=== PATIENT | female | born 1990 | race Caucasian/White ===

== ENCOUNTER → 2019-04-04 | Outpatient (CLI) | payer BC, SELFPAY ==
[2019-04-04 09:37] VITALS: BMI 31.8
[2019-04-04 15:00] LABS: Chlamydia Trachomatis by PCR Negative (Negative); Neisserai gonorrhoeae by PCR Negative (Negative); Probe Check PASS; Sample Adequacy Control PASS; Specimen Processing Control PASS
== END | disposition home or self-care (01) ==
PROVIDERS: Referring Provider Nurse Practitioner Women's Health; Visit Provider Nurse Practitioner Women's Health
DX: O10.911 Unspecified pre-existing hypertension complicating pregnancy, first trimester (principal); Z3A.00 Weeks of gestation of pregnancy not specified
CPT/HCPCS: 87086; 87088; 87491; 87591

== ENCOUNTER → 2019-04-21 | Outpatient (CLI) | payer BC, SELFPAY ==
[2019-04-04 09:37] VITALS: BMI 31.8
[2019-04-21 13:34] LABS: Absolute Lymphocyte Count 1.99 X10^3/ul (0.83-4.51); Basophil# 0.01 X10^3/uL; Basophil% 0.1 % (0-1); Eosinophil# 0.03 X10^3/uL; Eosinophils% 0.4 % (0-5); Hematocrit 39.1 % (37-47); Hemoglobin 13.7 g/dl (12.0-15.0); Lymphocyte # 1.99 X10^3/ul (4.0); Lymphocyte % 23.5 % (19-41); Mean Corpuscular Hgb 28.8 pg (27.0-32.0); Mean Corpuscular Volume 82.3 fL (81-99); Mean Platelet Vol. 10.4 fl (6.2-12.0); Monocyte# 0.43 X10^3/uL; Monocyte% 5.1 % (0-10); Neutrophil # 5.98 X10^3/uL (2.7-7.7); Neutrophil % 70.7 % (47-70); Platelet Count 278 K/mm3 (150-450); RBC Distribution Width CV 13.1 % (11.6-14.6); RBC Distribution Width SD 39.6 fl (35.1-43.9); Red Blood Count 4.75 M/mm3 (4.2-5.4); White Blood Count 8.5 K/mm3 (4.4-11.0)
[2019-04-21 13:35] LABS: POSITIVE COUNT NO; POSITIVE DIFFERENTIAL NO; POSITIVE MORPHOLOGY NO
[2019-04-21 13:55] LABS: ALB/GLOB Ratio 0.8 RATIO (0.9-2.4); AST(SGOT) 12 U/L (15-37); Alanine Aminotransfer ALT/SGPT 18 U/L (13-56); Albumin, Serum 3.3 g/dL (3.2-5.0); Alkaline Phosphatase 81 U/L (45-117); Anion Gap 5 (5-15); BUN 6 mg/dL (7-18); Chloride 107 mmol/L (98-107); EST Glomerular Filtration Rate 129 mL/min (>60); Est Glom Filt Rate - Afr Amer 156 mL/min (>60); Globulin 3.9 g/dL (2.2-4.2); Glucose 104 mg/dL (74-106); Potassium 3.3 mmol/L (3.5-5.1); Protein, Total 7.2 g/dL (6.4-8.2); Sodium Level 135 mmol/L (136-145)
[2019-04-21 14:41] LABS: HIV - WCH Non-Reactive (Nonreactive); Rubella IgG 255.9 IU/mL
[2019-04-22 11:33] LABS: HEPATITIS B SURFACE AG Negative (Negative)
[2019-04-28 02:31] LABS: Rapid Plasmin Reagin (RPR) NONREACTIVE (NONREACTIVE)
== END | disposition home or self-care (01) ==
LOC: LAB 12:47
PROVIDERS: Nurse Practitioner Women's Health; Referring Provider Obstetrics & Gynecology; Visit Provider Obstetrics & Gynecology
DX: O16.1 Unspecified maternal hypertension, first trimester (principal); Z3A.00 Weeks of gestation of pregnancy not specified
CPT/HCPCS: 36415; 80053; 85025; 86592; 86703; 86762; 86850; 86900; 87340

== ENCOUNTER → 2019-05-04 | Outpatient (CLI) | payer BC, SELFPAY ==
[2019-05-04 15:05] VITALS: BMI 31.8
[2019-05-04 16:25] LABS: ALB/GLOB Ratio 0.8 RATIO (0.9-2.4); AST(SGOT) 11 U/L (15-37); Alanine Aminotransfer ALT/SGPT 18 U/L (13-56); Albumin, Serum 3.1 g/dL (3.2-5.0); Alkaline Phosphatase 77 U/L (45-117); Anion Gap 8 (5-15); BUN 8 mg/dL (7-18); BUN/Creat Ratio 13.2 RATIO (10-20); Calcium,Total 8.7 mg/dL (8.5-10.1); Chloride 105 mmol/L (98-107); Creatinine, Serum 0.61 mg/dL (0.55-1.02); EST Glomerular Filtration Rate 127 mL/min (>60); Est Glom Filt Rate - Afr Amer 153 mL/min (>60); Globulin 3.8 g/dL (2.2-4.2); Glucose 128 mg/dL (74-106); Potassium 3.3 mmol/L (3.5-5.1); Protein, Total 6.9 g/dL (6.4-8.2); Sodium Level 139 mmol/L (136-145)
== END | disposition home or self-care (01) ==
LOC: PAVLAB 15:11
PROVIDERS: Family Provider Nurse Practitioner Family; PCP Nurse Practitioner Family; Referring Provider Obstetrics & Gynecology; Visit Provider Obstetrics & Gynecology
DX: E87.6 Hypokalemia (principal)
CPT/HCPCS: 36415; 80053

== ENCOUNTER → 2019-06-07 | Outpatient (CLI) | payer BC, SELFPAY ==
[2019-05-16 08:28] VITALS: BMI 31.8
[2019-06-07 11:56] LABS: ALB/GLOB Ratio 0.8 RATIO (0.9-2.4); AST(SGOT) 14 U/L (15-37); Alanine Aminotransfer ALT/SGPT 19 U/L (13-56); Alkaline Phosphatase 79 U/L (45-117); Anion Gap 4 (5-15); BUN 7 mg/dL (7-18); Calcium,Total 8.6 mg/dL (8.5-10.1); Chloride 107 mmol/L (98-107); Creatinine, Serum 0.54 mg/dL (0.55-1.02); EST Glomerular Filtration Rate 145 mL/min (>60); Est Glom Filt Rate - Afr Amer 175 mL/min (>60); Globulin 3.7 g/dL (2.2-4.2); Glucose 98 mg/dL (74-106); Potassium 3.5 mmol/L (3.5-5.1); Protein, Total 6.7 g/dL (6.4-8.2); Sodium Level 138 mmol/L (136-145)
== END | disposition home or self-care (01) ==
LOC: PAVLAB 11:19
PROVIDERS: Nurse Practitioner Women's Health; Family Provider Nurse Practitioner Family; PCP Nurse Practitioner Family; Referring Provider Obstetrics & Gynecology; Visit Provider Obstetrics & Gynecology
DX: E87.6 Hypokalemia (principal); I10 Essential (primary) hypertension
CPT/HCPCS: 36415; 80053

== ENCOUNTER → 2019-08-01 | Outpatient (CLI) | payer BC, SELFPAY ==
[2019-08-01 12:04] VITALS: BMI 33.1
[2019-08-01 12:21] LABS: ROM Internal Control Test YES-OK TO RESULT pt. (Internal QC); Record Kit Lot#, ROM+ J8255
[2019-08-01 12:32] LABS: ROM Patient Test Negative (Negative)
== END | disposition home or self-care (01) ==
LOC: LABSPEC 12:09
PROVIDERS: Family Provider Nurse Practitioner Family; PCP Nurse Practitioner Family; Visit Provider Obstetrics & Gynecology
DX: Z34.90 Encounter for supervision of normal pregnancy, unspecified, unspecified trimester (principal)
CPT/HCPCS: 84112

== ENCOUNTER 2019-08-11 09:40 | Outpatient (CLI) | payer BC, SELFPAY ==
[2019-08-01 12:04] VITALS: BMI 33.1
[2019-08-11 10:18] VITALS: BMI 34.0
[2019-08-11 10:32] LABS: Mucous, Urine 0 SEEN /hpf (<or=2+); Red Blood Cells-Urine 0 SEEN /hpf (0-5)
[2019-08-11 10:46] LABS: Color, Urine Yellow (Yellow); Glucose, Dipstick 100 mg/dl (Normal); Ketone-Dipstick Negative (Negative); Leukocyte Esterase-Dipstick 500 /ul (Negative); Nitrite-Dipstick Negative (Negative); Occult Blood-Urine Negative /ul (Negative); Protein-Dipstick 15 mg/dl (Negative); Urine Bilirubin Dipstick Negative (Negative); Urine Clarity Sl. Cloudy (Clear); Urine Urobilinogen Normal (Normal)
[2019-08-11 10:56] LABS: Bacteria 1+ /hpf (None Seen); Squamous Epithelial Cells - UA 5-10 SEEN /hpf (5-10); White Blood Cells 25-50 SEEN /hpf (0-5)
[2019-08-11 10:57] LABS: ROM Internal Control Test YES-OK TO RESULT pt. (Internal QC); ROM Patient Test Negative (Negative); Record Kit Lot#, ROM+ J8255
--- NOTE | 2019-08-11 12:30 | OB.TRI.PN ---
Progress Notes Date of Service: 08/11/19 Progress Note: Patient presents for triage evaluation secondary to threatened labor co ctx 3/hr FHT:150 Moderate variability reactive no decelerations category I tracing [place]: 3/hr Contractions Assessment and plan: threatened labor Reactive NST, reassuring maternal and status patient discharged to home to follow-up as scheudled. See problem list details for additional plan information. Laboratory Studies: Laboratory Tests 08/11/19 08/11/19 Range/Units 10:25 10:25 Urine Color Yellow (Yellow) Urine Clarity Sl. Cloudy (Clear) Urine pH 7.0 (5.0 - 8.0) Ur Specific [place] 1.010 (1.002-1.030) Urine Protein 15 H (Negative) mg/dl Urine Glucose (UA) 100 H (Normal) mg/dl Urine Ketones Negative (Negative) mg/dl Urine Occult Blood Negative (Negative) /ul Urine Nitrite Negative (Negative) Urine Bilirubin Negative (Negative) mg/dL Urine Urobilinogen Normal (Normal) mg/dl Ur Leukocyte Esterase 500 H (Negative) /ul Urine RBC 0 SEEN (0-5) /hpf Urine WBC 25-50 SEEN (0-5) /hpf Ur Squamous Epith Cells 5-10 SEEN (5-10) /hpf Urine Bacteria 1+ (None Seen) /hpf Urine Mucus 0 SEEN (<or=2+) /hpf Vag Amniotic Fld Detect Negative (Negative) - Problem List (1) Threatened labor Status: Acute (2) Supervision of normal first Status: Acute Qualifiers: Comment: PRR G LAURA 11/09/2019 boy Patric Spouse:Velasquez, gender surprise Multi Select Codes - Urinary/Genital Urinary/Genital CPT Codes: 91001-79 non-stress test Interp
== END 2019-08-11 12:25 | disposition home or self-care (01) ==
LOC: WPOUT 09:45 → WP 09:46
PROVIDERS: Family Provider Nurse Practitioner Family; PCP Nurse Practitioner Family; Referring Provider Obstetrics & Gynecology; Visit Provider Obstetrics & Gynecology
DX: O60.00 Preterm labor without delivery, unspecified trimester (principal); Z3A.00 Weeks of gestation of pregnancy not specified
CPT/HCPCS: 59050; 81001; 84112; 99218; G0378

== ENCOUNTER → 2019-08-21 | Outpatient (CLI) | payer BC, SELFPAY ==
[2019-08-21 09:02] VITALS: BMI 34.0
[2019-08-21 10:03] LABS: Absolute Lymphocyte Count 1.73 X10^3/uL (0.83-4.51); Absolute Neutrophil Count 7.8 X10^3/uL (2.0-7.7); Basophil# 0.02 X10^3/uL; Basophil% 0.2 % (0-1); Eosinophil# 0.02 X10^3/uL; Eosinophils% 0.2 % (0-5); Hemoglobin 12.8 g/dL (12.0-15.0); Lymphocyte # 1.73 X10^3/ul (4.0); Mean Corp Hgb Conc 33.7 g/dL (32-36); Mean Corpuscular Hgb 29.3 pg (27.0-32.0); Monocyte# 0.53 X10^3/uL; Monocyte% 5.2 % (0-10); NRBC Flagged by Analyzer 0 % (0-5); Neutrophil # 7.78 X10^3/uL (2.7-7.7); Neutrophil % 76.3 % (47-70); Platelet Count 254 K/mm3 (150-450); RBC Distribution Width CV 13.6 % (11.6-14.6); Red Blood Count 4.37 M/mm3 (4.2-5.4); White Blood Count 10.2 K/mm3 (4.4-11.0)
== END | disposition home or self-care (01) ==
LOC: PAVLAB 09:30
PROVIDERS: Family Provider Nurse Practitioner Family; PCP Nurse Practitioner Family; Referring Provider Obstetrics & Gynecology; Visit Provider Obstetrics & Gynecology
DX: Z34.90 Encounter for supervision of normal pregnancy, unspecified, unspecified trimester (principal)
CPT/HCPCS: 36415; 85025

== ENCOUNTER → 2019-09-08 | Outpatient (CLI) | payer BC, SELFPAY ==
[2019-09-04 08:41] VITALS: BMI 34.0
--- NOTE | 2019-09-08 12:44 | US_ITS ---
STUDY: SECOND AND THIRD TRIMESTER OBSTETRICAL ULTRASOUND REASON FOR EXAM: Female, 28 years old evaluation of growth LMP: 02/02/2019 TECHNIQUE: Transabdominal TECHNICAL QUALITY: Adequate. PRIOR ULTRASOUND: None. FINDINGS: There is a single intrauterine fetus. The fetus is in a cephalic presentation. There is demonstrated cardiac activity with a heart rate of 129 bpm. There is a normal amniotic fluid volume. The largest amniotic fluid pocket measures 6.5 cm. The amniotic fluid index (DANNY) is 15.0 cm. The placenta is anterior and not low-lying There are Grade 0 placental changes. The cervix measures 4.3 in length. The bilateral adnexal regions are normal. BIOMETRY: BPD: 8.2 cm: 32 weeks, 5 days HC: 30.2 cm: 33 weeks, 3 days AC: 29.2 cm: 33 weeks, 1 days FL: 6.4 cm: 32 weeks, 6 days CI: 0.80 FL/BPD: 0.78 FL/HC: FL/AC: 0.22 HC/AC: 1.04 age by current US: 32 weeks, 5 days. LAURA by current US: 10/29/2019. Estimated weight: 2116 grams, +/- 303 grams, 90 %. Age by LMP: 31 weeks, 1 days. LAURA by LMP: 11/09/2019 IMPRESSION: A single live fetus in a cephalic presentation and longitudinal lie with composite measurements averaging out to be equivalent to 32 weeks 5 days +/- 5 days with an expected date of delivery of 10/29/2019. There is an estimated weight of 2116 g. This is in the 90th percentile. Electronically Signed: Anthony Max MD at 7:28 EST Tel , Service support , STUDY: SECOND AND THIRD TRIMESTER OBSTETRICAL ULTRASOUND REASON FOR EXAM: Female, 28 years old evaluation of growth LMP: 02/02/2019 TECHNIQUE: Transvaginal TECHNICAL QUALITY: Adequate. PRIOR ULTRASOUND: None. FINDINGS: There is a single intrauterine fetus. The fetus is in a cephalic presentation. There is demonstrated cardiac activity with a heart rate of 129 bpm. There is a normal amniotic fluid volume. The largest amniotic fluid pocket measures 6.5 cm. The amniotic fluid index (DANNY) is 15.0 cm. The placenta is anterior and not low-lying There are Grade 0 placental changes. The cervix measures 4.3 in length. The bilateral adnexal regions are normal. BIOMETRY: BPD: 8.2 cm: 32 weeks, 5 days HC: 30.2 cm: 33 weeks, 3 days AC: 29.2 cm: 33 weeks, 1 days FL: 6.4 cm: 32 weeks, 6 days CI: 0.80 FL/BPD: 0.78 FL/HC: FL/AC: 0.22 HC/AC: 1.04 age by current US: 32 weeks, 5 days. LAURA by current US: 10/29/2019. Estimated weight: 2116 grams, +/- 303 grams, 90 %. Age by LMP: 31 weeks, 1 days. LAURA by LMP: 11/09/2019 US/OB Limited With Biometrics
== END | disposition home or self-care (01) ==
PROVIDERS: Family Provider Nurse Practitioner Family; PCP Nurse Practitioner Family; Referring Provider Obstetrics & Gynecology; Visit Provider Obstetrics & Gynecology
DX: Z34.90 Encounter for supervision of normal pregnancy, unspecified, unspecified trimester (principal)
CPT/HCPCS: 76816; 76817

== ENCOUNTER 2019-09-24 06:15 | Outpatient (CLI) | payer BC, SELFPAY ==
[2019-09-18 08:40] VITALS: BMI 34.0
[2019-09-24 06:34] VITALS: BMI 34.4
[2019-09-24 07:43] LABS: Color, Urine Yellow (Yellow); Glucose, Dipstick Normal (Normal); Ketone-Dipstick Negative (Negative); Leukocyte Esterase-Dipstick 500 /ul (Negative); Nitrite-Dipstick Negative (Negative); Occult Blood-Urine 50 /ul (Negative); Protein-Dipstick Negative (Negative); Urine Bilirubin Dipstick Negative (Negative); Urine Clarity Sl. Cloudy (Clear); Urine Urobilinogen Normal (Normal)
[2019-09-24 07:50] LABS: Bacteria 1+ /hpf (None Seen); Mucous, Urine RARE /hpf (<or=2+); Red Blood Cells-Urine 0-5 SEEN /hpf (0-5); Squamous Epithelial Cells - UA 10-25 SEEN /hpf (5-10); White Blood Cells 5-10 SEEN /hpf (0-5)
[2019-09-24] MEDS: Nitrofurantoin Macrocrystals 100 MG Capsule PO (08:08)
--- NOTE | 2019-09-25 03:56 | OB.TRI.PN_ITS ---
Progress Notes Date of Service: 09/25/19 Progress Note: Patient presents for triage evaluation secondary to threatened labor FHT: 135 Moderate variability reactive no decelerations category I tracing [place]: Irregular contractions Assessment and plan: Threatened labor reactive NST, reassuring maternal and status patient discharged to home to follow-up as scheduled no significant cervical dilation ordered antibiotic for suspected UTI we will follow-up on culture. See problem list details for additional plan information. Laboratory Studies: Laboratory Tests 09/24/19 Range/Units 07:20 Urine Color Yellow (Yellow) Urine Clarity Sl. Cloudy (Clear) Urine pH 7.0 (5.0 - 8.0) Ur Specific [place] 1.010 (1.002-1.030) Urine Protein Negative (Negative) mg/dl Urine Glucose (UA) Normal (Normal) mg/dl Urine Ketones Negative (Negative) mg/dl Urine Occult Blood 50 H (Negative) /ul Urine Nitrite Negative (Negative) Urine Bilirubin Negative (Negative) mg/dL Urine Urobilinogen Normal (Normal) mg/dl Ur Leukocyte Esterase 500 H (Negative) /ul Urine RBC 0-5 SEEN (0-5) /hpf Urine WBC 5-10 SEEN (0-5) /hpf Ur Squamous Epith Cells 10-25 SEEN (5-10) /hpf Urine Bacteria 1+ (None Seen) /hpf Urine Mucus RARE (<or=2+) /hpf - Problem List (1) Threatened labor Status: Acute Comment: seen 09/24- no cervical dilation Multi Select Codes - Urinary/Genital Urinary/Genital CPT Codes: 50074-24 non-stress test Interp
== END 2019-09-24 08:15 | disposition home or self-care (01) ==
LOC: WPOUT 06:19 → OBT 06:21
PROVIDERS: Family Provider Nurse Practitioner Family; PCP Nurse Practitioner Family; Visit Provider Obstetrics & Gynecology
DX: O60.00 Preterm labor without delivery, unspecified trimester (principal); Z3A.00 Weeks of gestation of pregnancy not specified
CPT/HCPCS: 59025; 59050; 81001; 87086; 87088; 99218; G0378

== ENCOUNTER → 2019-10-06 08:37 | Outpatient (CLI) | payer BC, SELFPAY ==
[2019-09-04 08:41] VITALS: BMI 34.0
[2019-10-02 08:57] VITALS: BMI 34.4
--- NOTE | 2019-10-06 08:54 | US_ITS ---
STUDY: SECOND AND THIRD TRIMESTER OBSTETRICAL ULTRASOUND REASON FOR EXAM: Female, 28 years old LMP: 02/02 TECHNIQUE: TECHNICAL QUALITY: Adequate. PRIOR ULTRASOUND: 09/08/2019 FINDINGS: There is a single intrauterine fetus. The fetus is in a cephalic presentation. There is demonstrated cardiac activity with a heart rate of 135 bpm. There is a normal amniotic fluid volume. The largest amniotic fluid pocket measures 4.4 cm. The amniotic fluid index (DANNY) is 4.4 cm. The placenta is anterior There are Grade 0 placental changes. The cervix measures 3.3 in length. The bilateral adnexal regions are normal. BIOMETRY: BPD: 9.03 cm: 36 weeks, 3 days HC: 32.6 cm: 37 weeks, 0 days AC: 34.7 cm: 78 weeks, 4 days FL: 7.1 cm: 36 weeks, 5 days CI: 52% FL/BPD: 79% FL/HC: FL/AC: 21% HC/AC: 0.94 age by current US: 56 weeks, 5 days. LAURA by current US: 10/29/2019. Estimated weight: 3311 grams, +/- 490 grams, 97%. age by prior US: 36 weeks, 5 days. LAURA by prior US: 10/29/2019. Age by LMP: 35 weeks, 1 days. LAURA by LMP: 11/09/2019. ANATOMY: Gender: Cranium: Normal lateral ventricles. Normal choroid plexus. Normal cerebellum. Normal cisterna magna. Normal face, nose and lips. Chest: Normal 4-chamber heart. Abdomen/Pelvis: Normal diaphragm. Normal stomach. Normal abdominal wall. Normal cord insertion. Normal 3 vessel cord. Normal kidneys. Normal bladder. Spine: Normal cervical spine. Normal thoracic spine. Normal lumbar spine. Normal sacrum. Extremities: Normal bilateral upper extremities. Normal bilateral lower extremities. US/OB Limited With Biometrics IMPRESSION: Single intrauterine live fetus corresponds to about 56 weeks and 5 days Electronically Signed: Major Méndez, at 11:41 EST Tel , Service support ,
== END ==
PROVIDERS: Family Provider Nurse Practitioner Family; PCP Nurse Practitioner Family; Referring Provider Obstetrics & Gynecology; Visit Provider Obstetrics & Gynecology
DX: Z34.00 Encounter for supervision of normal first pregnancy, unspecified trimester (principal)
CPT/HCPCS: 76816; 76817

== ENCOUNTER 2019-10-07 19:35 | Outpatient (CLI) | payer BC, SELFPAY ==
[2019-10-02 08:57] VITALS: BMI 34.4
[2019-10-07 20:59] LABS: Hemoglobin 11.6 g/dL (12.0-15.0); Mean Corp Hgb Conc 34.1 g/dL (32-36); Mean Corpuscular Hgb 29.1 pg (27.0-32.0); Mean Corpuscular Volume 85.2 fL (81-99); Mean Platelet Vol. 11.4 fl (6.2-12.0); Platelet Count 235 K/mm3 (150-450); RBC Distribution Width CV 13.8 % (11.6-14.6); RBC Distribution Width SD 42.5 fl (35.1-43.9); Red Blood Count 3.99 M/mm3 (4.2-5.4); White Blood Count 11.1 K/mm3 (4.4-11.0)
[2019-10-07 21:13] LABS: AST(SGOT) 13 U/L (15-37); Alanine Aminotransfer ALT/SGPT 16 U/L (13-56); Creatinine, Serum 0.54 mg/dL (0.55-1.02); EST Glomerular Filtration Rate 145 mL/min (>60); Est Glom Filt Rate - Afr Amer 175 mL/min (>60); Estimated Creatinine Clearance 0.53 ml/min; Uric Acid 3.4 mg/dL (2.6-6.0)
[2019-10-07 21:29] LABS: Protein, Urine (Random) 12.7 mg/dL (<11.9); Protein:Creat Ratio 258 mg/g CRE (0-200)
[2019-10-07 22:11] LABS: International Normalized Ratio 0.9; Prothrombin Time (Protime)PT. 12.4 SECONDS (11.7-14.9)
[2019-10-07 22:12] LABS: Partial Thromboplast Time 27.8 Seconds (24.1-36.2)
--- NOTE | 2019-10-09 17:58 | OB.TRI.PN_ITS ---
Progress Notes Date of Service: 10/07/19 Progress Note: threatened ptl FHT: 130 Moderate variability reactive no decelerations category I tracing [place]: irregular Contractions threatened PTL dc home labor precautions Laboratory Studies: Laboratory Tests 10/09/19 10/07/19 10/07/19 Range/Units 03:15 21:19 20:50 WBC (4.4-11.0) K/mm3 RBC (4.2-5.4) M/mm3 Hgb (12.0-15.0) g/dL Hct (37-47) % MCV (81-99) fL MCH (27.0-32.0) pg MCHC (32-36) g/dL RDW Std Deviation (35.1-43.9) fl RDW Coeff of Maxim (11.6-14.6) % Plt Count (150-450) K/mm3 MPV (6.2-12.0) fl PT 12.4 INR 0.9 APTT 27.8 Sodium Cancelled Potassium Cancelled Chloride Cancelled Carbon Dioxide Cancelled Anion Gap Cancelled BUN Cancelled Creatinine Cancelled (0.55-1.02) mg/dL Estim Creat Clear Calc Cancelled ml/min Est GFR (MDRD) Af Amer Cancelled (>60) mL/min Est GFR (MDRD) Non-Af Cancelled (>60) mL/min BUN/Creatinine Ratio Cancelled Glucose Cancelled Uric Acid (2.6-6.0) mg/dL Calcium Cancelled Total Bilirubin Cancelled AST Cancelled (15-37) U/L ALT Cancelled (13-56) U/L Alkaline Phosphatase Cancelled Total Protein Cancelled Albumin Cancelled Globulin Cancelled Albumin/Globulin Ratio Cancelled U Random Total Protein 12.7 H (<11.9) mg/dL Urine Creatinine 49.30 (NO RANGE EST.) mg/dL Protein/Creatinin Ratio 258 H (0-200) mg/g CRE 10/07/19 10/07/19 10/07/19 Range/Units 20:50 20:50 20:50 WBC 11.1 H (4.4-11.0) K/mm3 RBC 3.99 L (4.2-5.4) M/mm3 Hgb 11.6 L (12.0-15.0) g/dL Hct 34.0 L (37-47) % MCV 85.2 (81-99) fL MCH 29.1 (27.0-32.0) pg MCHC 34.1 (32-36) g/dL RDW Std Deviation 42.5 (35.1-43.9) fl RDW Coeff of Maxim 13.8 (11.6-14.6) % Plt Count 235 (150-450) K/mm3 MPV 11.4 (6.2-12.0) fl PT Cancelled INR Cancelled APTT Cancelled Sodium Potassium Chloride Carbon Dioxide Anion Gap BUN Creatinine 0.54 L (0.55-1.02) mg/dL Estim Creat Clear Calc 0.53 ml/min Est GFR (MDRD) Af Amer 175 (>60) mL/min Est GFR (MDRD) Non-Af 145 (>60) mL/min BUN/Creatinine Ratio Glucose Uric Acid 3.4 (2.6-6.0) mg/dL Calcium Total Bilirubin AST 13 L (15-37) U/L ALT 16 (13-56) U/L Alkaline Phosphatase Total Protein Albumin Globulin Albumin/Globulin Ratio U Random Total Protein (<11.9) mg/dL Urine Creatinine (NO RANGE EST.) mg/dL Protein/Creatinin Ratio (0-200) mg/g CRE Multi Select Codes - Urinary/Genital Urinary/Genital CPT Codes: 20665-41 non-stress test Interp
== END 2019-10-07 22:30 | disposition home or self-care (01) ==
LOC: WPOUT 19:43 → WP 19:43
PROVIDERS: Family Provider Nurse Practitioner Family; PCP Nurse Practitioner Family; Referring Provider Obstetrics & Gynecology; Visit Provider Obstetrics & Gynecology
DX: O60.00 Preterm labor without delivery, unspecified trimester (principal); Z3A.00 Weeks of gestation of pregnancy not specified
CPT/HCPCS: 59050; 82565; 82570; 84156; 84450; 84460; 84550; 85027; 85610; 85730; 99218; G0378

== ENCOUNTER 2019-10-09 02:50 | Inpatient (IN) | payer BC, SELFPAY ==
[2019-10-09] VITALS (10 sets, daily range): BP systolic 103–147; BP diastolic 59–86; PULSE 89–121; RESP 18–20; TEMP 37.6–37.8; O2SAT 96–99; BMI 33.9
[2019-10-09] MEDS: Lactated Ringers 1,000 ML 50 ML IV (03:15)
[2019-10-09] MEDS: Betamethasone/Betamethasone 30 MG/5 ML Vial 12 MG IM (04:15)
[2019-10-09 04:24] LABS: Absolute Lymphocyte Count 3.17 X10^3/uL (0.83-4.51); Absolute Neutrophil Count 8.3 X10^3/uL (2.0-7.7); Basophil# 0.02 X10^3/uL; Basophil% 0.2 % (0-1); Eosinophil# 0.04 X10^3/uL; Eosinophils% 0.3 % (0-5); Hematocrit 35.1 % (37-47); Hemoglobin 12.1 g/dL (12.0-15.0); Lymphocyte # 3.17 X10^3/ul (4.0); Lymphocyte % 25.6 % (19-41); Mean Corp Hgb Conc 34.5 g/dL (32-36); Mean Corpuscular Hgb 29.2 pg (27.0-32.0); Mean Corpuscular Volume 84.6 fL (81-99); Mean Platelet Vol. 11.7 fl (6.2-12.0); Monocyte# 0.74 X10^3/uL; NRBC Flagged by Analyzer 0 % (0-5); Platelet Count 246 K/mm3 (150-450); RBC Distribution Width CV 13.7 % (11.6-14.6); RBC Distribution Width SD 42.1 fl (35.1-43.9); Red Blood Count 4.15 M/mm3 (4.2-5.4); White Blood Count 12.4 K/mm3 (4.4-11.0)
[2019-10-09] MEDS: Vancomycin IV 1,000 MG/200 ML BAG 200 MG IV ×2 (04:29→16:56)
[2019-10-09 04:30] LABS: ALB/GLOB Ratio 0.7 RATIO (0.9-2.4); AST(SGOT) 13 U/L (15-37); Alanine Aminotransfer ALT/SGPT 16 U/L (13-56); Albumin, Serum 2.7 g/dL (3.2-5.0); Alkaline Phosphatase 138 U/L (45-117); Anion Gap 9 (5-15); BUN 7 mg/dL (7-18); BUN/Creat Ratio 10.9 RATIO (10-20); Calcium,Total 8.5 mg/dL (8.5-10.1); Chloride 107 mmol/L (98-107); Creatinine, Serum 0.64 mg/dL (0.55-1.02); EST Glomerular Filtration Rate 118 mL/min (>60); Est Glom Filt Rate - Afr Amer 143 mL/min (>60); Globulin 3.8 g/dL (2.2-4.2); Glucose 91 mg/dL (74-106); Potassium 3.4 mmol/L (3.5-5.1); Protein, Total 6.5 g/dL (6.4-8.2); Sodium Level 136 mmol/L (136-145)
[2019-10-09 04:45] LABS: Protein, Urine (Random) 36.5 mg/dL (<11.9); Protein:Creat Ratio 283 mg/g CRE (0-200)
[2019-10-09 05:35] LABS: Group B Strep DNA By PCR Negative (Negative); Internal Control PASS; Probe Check PASS; Specimen Processing Control PASS
[2019-10-09] MEDS: Lactated Ringers 500 ML 999 ML IV ×2 (10:56→13:00)
[2019-10-09] MEDS: fentaNYL-bupivacaine (epidural) 100 ML BAG EPIDURAL ×2 (11:24→15:59)
[2019-10-09] MEDS: 0.9% Saline Lock 10 ML Syringe IV (12:42)
[2019-10-09] MEDS: Ondansetron 4 MG/2 ML Vial IV (12:42)
[2019-10-09] MEDS: Oxytocin 30 units/NS 500 ml 30 UNITS/500 ML IV.SOLN IV (14:28)
[2019-10-09] MEDS: Lactated Ringers 1,000 ML 200 ML IV (15:25)
--- NOTE | 2019-10-09 16:21 | HP.PCM_ITS ---
- Problem List (1) premature rupture of membranes (PPROM) with onset of labor after 24 hours of rupture in first trimester, antepartum Status: Acute (2) Diabetes mellitus screening declined by patient Status: Acute Comment: plan home BS checks x 1 week (3) Low serum potassium Status: Acute Comment: 06/07/19 (4) Anxiety Status: Acute Comment: zoloft 50 mg, encouraged counseling (5) Hypertension Status: Chronic Qualifiers: Comment: metoprolol, normal cmp, ekg, urine protein creatinine ratio. sees etienne green. plan growth us at 30 weeks and 34, plan weekly nsts after 32 and IOL by 38 (6) Status: Acute Qualifiers: Comment: Denies carrier. NIPT low risk. Anatomy US normal. (7) Supervision of normal first Status: Acute Qualifiers: Comment: PRR LAURA 11/09/2019 coby Spivey Spouse:Velasquez History Date of Admission: 10/09/19 Final LAURA: 11/09/19 Gestational age: 35 Weeks and 4 Days History of this : This is a 28 year-old, at 35 weeks gestational age presents with clear PPROM this morning. she is having regular ctx. denies any vb admits good fm. bps normal to mildly elevated.. Medical History: Medical History (Last Reviewed 09/25/19 @ 08:32 by Alicia Roa) Anxiety F41.9 Palpitations R00.2 white coat syndrome [place] teeth extracted K08.409 Allergies codeine Allergy (Mild, Verified 10/09/19 03:07) vomiting metronidazole [From Flagyl] Allergy (Mild, Verified 10/09/19 03:07) vomiting Penicillins Allergy (Mild, Verified 10/09/19 03:07) hives Home Medications: Home Medications metoprolol succinate ER 25 mg tablet,extended release 24 hr 12.5 mg PO DAILY 04/04/19 sertraline 50 mg tablet 50 mg PO DAILY 04/04/19 vitamin#30 30 mg iron-10 mg iron-folic acid 1 mg-omg3 capsule 1 cap PO DAILY cap 06/26/19 Smoking Status: Never smoker Alcohol: None Number of Fetus(es): 1 NST - FHR Rate Baby A Baseline: 140 Variability:: Moderate Accelerations:: 15 x 15 Decelerations:: None NST Reactive:: Yes FHR Category:: Category I Uterine Activity:: q 4-6 History Past Pregnancies: Past Pregnancies Delivery Date Name GA/ Weeks Outcome Route Wt Infant Sex Labor Length Anesthesia Delivery Location Provider FOB Labs: [facility] Microbiology 10/09/19 Unknown Genital vaginal Group B Streptococcus Culture - Pending [facility] Labs & Results 10/09/19 10/09/19 10/09/19 03:15 03:15 03:35 WBC 12.4 H RBC 4.15 L Hgb 12.1 Hct 35.1 L MCV 84.6 MCH 29.2 MCHC 34.5 RDW Std Deviation 42.1 RDW Coeff of Maxim 13.7 Plt Count 246 MPV 11.7 Immature Gran % (Auto) 0.900 Neut % (Auto) 67.0 Lymph % (Auto) 25.6 Bell % (Auto) 6.0 Eos % (Auto) 0.3 Baso % (Auto) 0.2 Absolute Neuts (auto) 8.3 H Absolute Lymphs (auto) 3.17 Nucleated RBC % 0 Sodium 136 Potassium 3.4 L Chloride 107 Carbon Dioxide 20.0 L Anion Gap 9 BUN 7 Creatinine 0.64 Estim Creat Clear Calc 124.70 Est GFR (MDRD) Af Amer 143 Est GFR (MDRD) Non-Af 118 BUN/Creatinine Ratio 10.9 Glucose 91 Calcium 8.5 Total Bilirubin 0.30 AST 13 L ALT 16 Alkaline Phosphatase 138 H Total Protein 6.5 Albumin 2.7 L Globulin 3.8 Albumin/Globulin Ratio 0.7 L U Random Total Protein Urine Creatinine Protein/Creatinin Ratio Group B Strep DNA Specimen Comment Blood Type AB POSITIVE Antibody Screen NEGATIVE 10/09/19 10/09/19 04:10 04:10 WBC RBC Hgb Hct MCV MCH MCHC RDW Std Deviation RDW Coeff of Maxim Plt Count MPV Immature Gran % (Auto) Neut % (Auto) Lymph % (Auto) Bell % (Auto) Eos % (Auto) Baso % (Auto) Absolute Neuts (auto) Absolute Lymphs (auto) Nucleated RBC % Sodium Potassium Chloride Carbon Dioxide Anion Gap BUN Creatinine Estim Creat Clear Calc Est GFR (MDRD) Af Amer Est GFR (MDRD) Non-Af BUN/Creatinine Ratio Glucose Calcium Total Bilirubin AST ALT Alkaline Phosphatase Total Protein Albumin Globulin Albumin/Globulin Ratio U Random Total Protein 36.5 H Urine Creatinine 129.00 Protein/Creatinin Ratio 283 H Group B Strep DNA Negative Specimen Comment Not Reportable Blood Type Antibody Screen Course Did the patient receive Yes care? Labs Blood Type: AB RH: POSITIVE RPR/VDRL/Syphilis Nonreactive Rubella status Immune HbSAg Negative Date Done: 04/21/19 HIV/AIDS Non-Reactive Current Obstetrical History Gestational Diabetes No Incompetent Cervix No Infertility No IUGR No Macrosomia No Hypertension/Pre-eclampsia Yes Placenta Previa/Abruption No PTL/PROM Yes Uterine anomaly No Oligohydramnios No Polyhydramnios No Multiple gestation No Past Medical History Asthma No Diabetes No Hypertension Yes Heart disease No Mitral valve prolapse No Neurologic/Seizure disorder/ No Migraines Kidney disease No Liver disease No Varicosities No Clotting disorders/Hx of DVT No Thyroid Dysfunction No Other medical diseases Yes: chronic white coat syndrome, chronic palpitations Psychiatric disorders Yes: anxiety/ depression Major trauma No Abnormal PAP smear No Sleep apnea No Mammogram in the last 2 years No Social History Marital Status: Alleged father Velasquez Cohen Hx Smoking No Smoking Status Never smoker Expected Infant Delivery Method: Spontaneous Vaginal Assessment/Plan All Active Problems (Last Reviewed 09/25/19 @ 08:32 by Alicia Roa) Threatened labor (Acute) premature rupture of membranes (PPROM) with onset of labor after 24 hours of rupture in first trimester, antepartum (Acute) Diabetes mellitus screening declined by patient (Acute) Low serum potassium (Acute) Anxiety (Acute) (Acute) Supervision of normal first (Acute) Tachycardia (Resolved) Threatened labor (Resolved) This is a 28 year-old, at 35 weeks gestational age presents PPROM. gbs unknown- Vancomycin pitocin PRN epidural PRN [place]
--- NOTE | 2019-10-09 17:17 | PCM.OPRPT ---
Problem List (1) premature rupture of membranes (PPROM) with onset of labor after 24 hours of rupture in first trimester, antepartum Status: Acute (2) Diabetes mellitus screening declined by patient Status: Acute Comment: plan home BS checks x 1 week (3) Low serum potassium Status: Acute Comment: 06/07/19 (4) Anxiety Status: Acute Comment: zoloft 50 mg, encouraged counseling (5) Hypertension Status: Chronic Qualifiers: Comment: metoprolol, normal cmp, ekg, urine protein creatinine ratio. sees etienne green. plan growth us at 30 weeks and 34, plan weekly nsts after 32 and IOL by 38 (6) Status: Acute Qualifiers: Comment: Denies carrier. NIPT low risk. Anatomy US normal. 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 Vacuum applied due to maternal exhaustion and variable decelerations. Pelvis assessed and initially felt to be adequate for 7 pound estimated weight infant. Vacuum applied in the +3 station and first was difficult to maintain suction as it was applied head was noted to be in the ROP presentation. 3 pop offs encountered and initially there was some minimal descent but then there was noted arrest of descent and therefore the procedure was aborted and it was discussed with the patient that the recommendation to proceed with primary is recommended. Suspected cephalopelvic disproportion. The patient was placed in the dorsal supine position with leftward tilt. Patient was prepped and draped in the normal sterile fashion. Pfannenstiel skin incision was made with the scalpel and carried through to the underlying layer of fascia with the scalpel. Fascia was nicked in the midline and the incision extended laterally. The peritoneum was entered digitally. The incision was stretched and a low transverse uterine incision was made with the scalpel. The infant's head was delivered after progressive flexion, with some difficulty due to maternal wretching and the tight angle of the pelvis, head impaction. however the head was finally delivered atraumatically followed by the anterior and posterior shoulders without complication the rest of the delivered. The cord was clamped and cut and the was handed off to awaiting nurse. The placenta was delivered spontaneously immediately following and was noted to be intact and have a three-vessel cord. The uterus was exteriorized cleared of all clots and debris, and the incision was closed in a double layer closure using #1 Monocryl. The ovaries and fallopian tubes were noted to be within normal limits. The uterus was returned to the maternal abdomen and gutters were cleared of all clots and debris. The peritoneum was closed with 3-0 Monocryl in a running fashion. Gloves were changed prior to fascial closure. Fascia was closed with 0 PDS in a running fashion. Subcutaneous tissue was copiously irrigated and the skin was closed with 3-0 Monocryl in a subcuticular fashion. Mepilex dressing was applied without complication. Patient was taken to recovery in stable condition. It was discussed with the patient that based on the clinical information obtained during this encounter, combined with her history, at this time I would recommend repeat cesareans for future deliveries if further pregnancies are desired. Amniotic Membrane Rupture Type: Spontaneous Amniotic Fluid Description: Clear Placenta Disposition: [facility] Cord Entanglement: None Esitmated Blood Loss (ml): 600 Gender: Male Antibiotic Given: Clindamycin 600mg IV x1 and Gentamicin 1.5mg/kg IV x1, Zithromax 500 mg/5 mL X1 Complications: None - Admit VTE Documentation VTE Present on Admission: No Vaginal Delivery Maternal Presentation: Active Labor, Spontaneous Rupture of Membranes 35 weeks IAL PPROM Method of Induction: Pitocin Amniotic Membrane Rupture Type: Spontaneous at home Amniotic Fluid Description: Clear Final LAURA: 11/09/19 Gestational age: 35 Weeks and 4 Days Type of Anesthesia: Epidural Placental Delivery Description: Spontaneous Placenta Disposition: [facility] Cord Vessel Description: 3 Vessels A gender: Male Medications given after delivery: IV Pitocin Complications: None Multi Select Codes - Urinary/Genital Urinary/Genital CPT Codes: 44165 Delivery [facility]
[2019-10-09] MEDS: Sodium Citrate/Citric Acid 30 ML UDC PO (19:32)
[2019-10-09] MEDS: Oxytocin 30 units/NS 500 ml 30 UNITS/500 ML IV.SOLN 167 UNITS IV (20:50)
[2019-10-09] MEDS: Lactated Ringers 1,000 ML 100 ML IV (23:52)
[2019-10-10] VITALS (15 sets, daily range): BP systolic 99–128; BP diastolic 46–70; PULSE 75–108; RESP 16–20; TEMP 36.3–37; O2SAT 96–99
--- NOTE | 2019-10-10 00:11 | NURSING ---
2330-epidural dosed w duramorph
--- NOTE | 2019-10-10 01:00 | NURSING ---
0055-spoke w dr story regarding pt feeling the pusling off and on to her abd, bleeding slightly extending to abd dressing, applied abd binder and still noted extending again, therefore going to place sand bag and reassess in an hour.vag bleeding/bp/hr all stable. ok with plan of care.
[2019-10-10] MEDS: Ketorolac 30 MG/ML Syringe IV ×4 (02:04→20:17)
[2019-10-10 05:49] LABS: Hemoglobin 9.3 g/dL (12.0-15.0); Mean Corp Hgb Conc 33.2 g/dL (32-36); Mean Corpuscular Hgb 28.6 pg (27.0-32.0); Mean Corpuscular Volume 86.2 fL (81-99); Mean Platelet Vol. 11.9 fl (6.2-12.0); Platelet Count 226 K/mm3 (150-450); RBC Distribution Width CV 14.1 % (11.6-14.6); RBC Distribution Width SD 43.8 fl (35.1-43.9); Red Blood Count 3.25 M/mm3 (4.2-5.4); White Blood Count 15.7 K/mm3 (4.4-11.0)
--- NOTE | 2019-10-10 08:05 | PN.OBGYN_ITS ---
Patient Problems: Active and Suspected Problems (Last Reviewed 09/25/19 @ 08:32 by Alicia Roa) premature rupture of membranes (PPROM) with onset of labor after 24 hours of rupture in first trimester, antepartum (Acute) Subjective: doing well no complaints pain controlled no CP SOB N V up to bedside and went in wheelchair to [facility](infant boy with low blood sugar/stable) tolerating po lochia moderate, going well - Physical Exam Vitals/I&O's: Vital Signs Temp Pulse Resp BP Pulse Ox 98.6 F 80 18 112/70 97 10/10/19 05:00 10/10/19 06:00 10/10/19 07:00 10/10/19 05:00 10/10/19 07:00 Oxygen Delivery Method Room Air Weight: 210 lb 5.136 oz Body Mass Index (BMI) 33.9 Intake and Output for Last 24 Hours 10/08/19 10/09/19 10/10/19 23:59 23:59 23:59 Intake Total 5469.73 / 5469.73 1605.33 / 1605.33 Output Total 975 / 975 650 / 650 Balance 4494.73 / 4494.73 955.33 / 955.33 General: Alert, Oriented x3 Abdomen: Non-Distended, - - FF below U. Dressing dry and intact with old d rainage only Laboratory Results 10/10/19 05:10: WBC 15.7 H, RBC 3.25 L, Hgb 9.3 L, Hct 28.0 L, MCV 86.2, MCH 28.6, MCHC 33.2, RDW Std Deviation 43.8, RDW Coeff of Maxim 14.1, Plt Count 226, MPV 11.9 Current Medications Acetaminophen (Tylenol) 1,000 mg PO Q8H PRN PRN PRN Reason: Pain Score 1-3/10 Bisacodyl (Dulcolax) 10 mg RECTAL UD PRN PRN Reason: If no BM Enoxaparin Sodium (Lovenox) 40 mg SC DAILY [facility] Hydrocortisone (Hytone) 1 applic TOPICAL TID PRN PRN; Protocol PRN Reason: Discomfort Lactated Ringer's () 1,000 mls @ 100 mls/hr IV .Q10H [facility] Last Infusion: 10/10/19 07:00 Dose: 100 mls/hr Documented by: Naloxone HCl 4 mg/ Dextrose 504 mls @ 0 mls/hr IV .Q0M PRN; Protocol PRN Reason: Respiratory depression Ketorolac Tromethamine (Toradol) 30 mg IV Q6H [facility] Stop: 10/11/19 20:01 Last Admin: 10/10/19 02:04 Dose: 30 mg Documented by: Metoprolol Succinate (Toprol Xl (Beta Minesh)) 12.5 mg PO DAILY [facility] Nalbuphine HCl (Nubain) 5 mg IV Q3H PRN PRN PRN Reason: ITCHING Stop: 10/11/19 02:53 Naloxone HCl (Narcan) 0.02 mg IV Q1M PRN PRN Reason: RR <10 and pt unresponsive Naproxen (Naprosyn) 250 - 500 mg PO Q8H PRN PRN PRN Reason: Pain Score 1-3/10 Ondansetron HCl (Zofran) 4 mg IV Q4H PRN PRN PRN Reason: Nausea Oxycodone HCl (Oxyir) 5 - 10 mg PO Q4H PRN PRN PRN Reason: Pain Score 4-10/10 Multivit/Folic Acid/Iron (Prenatabs Fa) 1 tablet PO DAILY [facility] Prochlorperazine Edisylate (Compazine Iv) 10 mg IV Q6H PRN PRN PRN Reason: NAUSEA Senna/Docusate Sodium (Senokot-S, Tita-Colace) 1 - 2 tablet PO DAILY PRN PRN Reason: Constipation Sertraline HCl (Zoloft) 50 mg PO DAILY [facility] Simethicone (Mylicon) 80 mg PO PCHS PRN PRN Reason: Indigestion/stomach pain Sodium Chloride () 5 - 15 ml IV UD PRN PRN Reason: SALINE FLUSH Medical Necessity - Tobacco Use Smoking Status: Never smoker Assessment/Plan All Active Problems (Last Reviewed 09/25/19 @ 08:32 by Alicia Roa) Threatened labor (Acute) premature rupture of membranes (PPROM) with onset of labor after 24 hours of rupture in first trimester, antepartum (Acute) Diabetes mellitus screening declined by patient (Acute) Low serum potassium (Acute) Anxiety (Acute) (Acute) Supervision of normal first (Acute) Tachycardia (Resolved) Threatened labor (Resolved) s/p PLTCS PPD # 1(CPD) 1. routine post care 2. breast feeding- support given 3. rh positive 4. rubella immune
[2019-10-10] MEDS: Lactated Ringers 1,000 ML 100 ML IV (09:53)
[2019-10-10] MEDS: Enoxaparin 40 MG/0.4 ML Syringe SC (10:45)
[2019-10-10] MEDS: Prenatal Vits Tablet 1 TABLET PO (10:45)
--- NOTE | 2019-10-10 11:29 | NURSING ---
Visit with mother in SCN, attempted to nurse baby during visit and was happy with how baby did. Reports that nurses got her pumping shortly after delivery and also pumped and hand expressed during the night. She was able to collect swabs, Reviewed pumping techniques and timing with mother and also encouraged hand expression with pumping, advised mother to call IBCLC for assistance with hand expression if desires. Mother indicates understanding
[2019-10-10] MEDS: Senna/Docusate Sodium 1 Tablet PO (14:14)
--- NOTE | 2019-10-10 14:56 | CASEMGMT ---
Social Work Labor and Delivery Consult received for maternal history of anxiety and resources. Chart has been reviewed. Noted baby, born at 35 weeks, has been transferred and admitted into the [facility]. This insurance underwriter sales is also the assigned high school social studies teacher for the SCN unit. Checked with SCN staff and mother of baby (MOB) has been into the SCN today, working on feeding the baby. Plan: See MOB today or tomorrow as time allows. -JOAO Hayes, GENERAL INTERNIST
[2019-10-10] MEDS: Acetaminophen 500 MG Tablet 1000 MG PO (18:24)
[2019-10-10] MEDS: 0.9% Saline Lock 10 ML Syringe IV (20:17)
[2019-10-10] MEDS: Sertraline 50 MG Tablet PO (21:45)
[2019-10-11] MEDS: Ketorolac 30 MG/ML Syringe IV ×3 (02:58→13:30)
[2019-10-11 03:05] VITALS: BP 113/73; PULSE 72; RESP 18; TEMP 36.6; O2SAT 98
[2019-10-11] MEDS: 0.9% Saline Lock 10 ML Syringe IV (08:16)
[2019-10-11 08:34] VITALS: BP 116/63; PULSE 81; RESP 18; TEMP 36.9; O2SAT 97
[2019-10-11] MEDS: Senna/Docusate Sodium 1 Tablet PO (10:28)
[2019-10-11] MEDS: Prenatal Vits Tablet 1 TABLET PO (10:28)
--- NOTE | 2019-10-11 10:48 | PCM.PN.OB ---
Patient Problems: Active and Suspected Problems (Last Reviewed 09/25/19 @ 08:32 by Alicia Roa) premature rupture of membranes (PPROM) with onset of labor after 24 hours of rupture in first trimester, antepartum (Acute) Subjective: doing well no complaints pain controlled no CP SOB N V ambulating well tolerating po lochia moderate, going well - Physical Exam Vitals/I&O's: Vital Signs Temp Pulse Resp BP Pulse Ox 98.5 F 81 18 116/63 97 10/11/19 08:34 10/11/19 08:34 10/11/19 08:34 10/11/19 08:34 10/11/19 08:34 Oxygen Delivery Method Room Air Weight: 210 lb 5.136 oz Body Mass Index (BMI) 33.9 Intake and Output for Last 24 Hours 10/09/19 10/10/19 10/11/19 23:59 23:59 23:59 Intake Total 5469.73 / 5469.73 2001. / 2001. Output Total 975 / 975 1800 / 1800 Balance 4494.73 / 4494.73 202.00 / 202.00 General: Alert, Oriented x3 Abdomen: Soft, Non-Distended, - - Dressing dry and intact. FF below U Current Medications Acetaminophen (Tylenol) 1,000 mg PO Q8H PRN PRN PRN Reason: Pain Score 1-3/10 Last Admin: 10/10/19 18:24 Dose: 1,000 mg Documented by: Bisacodyl (Dulcolax) 10 mg RECTAL UD PRN PRN Reason: If no BM Enoxaparin Sodium (Lovenox) 40 mg SC DAILY [facility] Last Admin: 10/10/19 10:45 Dose: 40 mg Documented by: Hydrocortisone (Hytone) 1 applic TOPICAL TID PRN PRN; Protocol PRN Reason: Discomfort Naloxone HCl 4 mg/ Dextrose 504 mls @ 0 mls/hr IV .Q0M PRN; Protocol PRN Reason: Respiratory depression Ketorolac Tromethamine (Toradol) 30 mg IV Q6H [facility] Stop: 10/11/19 20:01 Last Admin: 10/11/19 08:15 Dose: 30 mg Documented by: Metoprolol Succinate (Toprol Xl (Beta Minesh)) 12.5 mg PO DAILY@2100 [facility] Last Admin: 10/10/19 21:55 Dose: Not Given Documented by: Naloxone HCl (Narcan) 0.02 mg IV Q1M PRN PRN Reason: RR <10 and pt unresponsive Naproxen (Naprosyn) 250 - 500 mg PO Q8H PRN PRN PRN Reason: Pain Score 1-3/10 Ondansetron HCl (Zofran) 4 mg IV Q4H PRN PRN PRN Reason: Nausea Oxycodone HCl (Oxyir) 5 - 10 mg PO Q4H PRN PRN PRN Reason: Pain Score 4-10/10 Multivit/Folic Acid/Iron (Prenatabs Fa) 1 tablet PO DAILY [facility] Last Admin: 10/11/19 10:28 Dose: 1 tablet Documented by: Prochlorperazine Edisylate (Compazine Iv) 10 mg IV Q6H PRN PRN PRN Reason: NAUSEA Senna/Docusate Sodium (Senokot-S, Tita-Colace) 1 - 2 tablet PO DAILY PRN PRN Reason: Constipation Last Admin: 10/11/19 10:28 Dose: 2 tablet Documented by: Sertraline HCl (Zoloft) 50 mg PO DAILY@2100 [facility] Last Admin: 10/10/19 21:45 Dose: 50 mg Documented by: Simethicone (Mylicon) 80 mg PO PCHS PRN PRN Reason: Indigestion/stomach pain Sodium Chloride () 5 - 15 ml IV UD PRN PRN Reason: SALINE FLUSH Last Admin: 10/11/19 08:16 Dose: 5 ml Documented by: Medical Necessity - Tobacco Use Smoking Status: Never smoker Assessment/Plan All Active Problems (Last Reviewed 09/25/19 @ 08:32 by Alicia Roa) Threatened labor (Acute) premature rupture of membranes (PPROM) with onset of labor after 24 hours of rupture in first trimester, antepartum (Acute) Diabetes mellitus screening declined by patient (Acute) Low serum potassium (Acute) Anxiety (Acute) (Acute) Supervision of normal first (Acute) Tachycardia (Resolved) Threatened labor (Resolved) s/p LTCS PPD # 2 1. routine post care 2. breast feeding- support given 3. rh positive 4. rubella immune 5. Baby stable in [facility]. Plan home tomorrow
[2019-10-11] MEDS: Enoxaparin 40 MG/0.4 ML Syringe SC (11:36)
--- NOTE | 2019-10-11 13:15 | NURSING ---
Reviewed student nurse charting and it is complete.
[2019-10-11 13:39] VITALS: BP 113/53; PULSE 78; RESP 16; TEMP 36.6
--- NOTE | 2019-10-11 13:40 | CASEMGMT ---
Social Work Assessment Labor and Delivery Unit Date of Referral: 10.10.2019 Time of Referral: 728 Referred By: Dr. Chavez Date of Intervention: 10.11.2019 Time of Intervention: 113 Reason for Referral: Maternal anxiety and resources History obtained from: medical records and mother of baby (MOB) Sandra Cohen Household composition: MOB and father of baby (FOB). Home situation is reported to be safe and adequate. Home just purchased at the beginning of . Patient's parent/guardian status: TRUDY, age 28, is to JOVANY Cohen for the last 3 years (together for 7 years). MOB denies any form of abuse in relationship with JOVANY. baby is the first for both parents. [place] to be named Patric Cohen, born on 10.09.2017. Medical History: TRUDY is G1, P0 to 1 after delivering of infant at 35 weeks gestation. Delivery via unscheduled after failed vacuum assisted delivery. care was good and started in the first trimester. Patric?s birthweight was 6 pounds 4 ounces. Apgars 7 and 9 at 1 and 5 minutes of life. Baby transferred into the [facility] shortly after due to hypoglycemia issues and prematurity. Educational Status: MOB graduated high school, denies any issues with reading, writing, or learning comprehension. 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 Supplies: MOB reports to have needed supplies to get started including a bassinet, pack-n-play, breast pump, clothing, diapers, wipes, and car seat. Childcare/Caregiver(s): MOB and then FOB. Transportation: No issues. Programs/Agencies Involved: No agency involvement such as WIC as MOB believes to be over the income guidelines. MOB does agree to a Help Me Grow referral. Children Services/Legal Issues: None. Behavioral Health Issues: Mental Health History: MOB reports history of anxiety and depression, more prominently identifies with anxiety. MOB reports currently takes Zoloft and plans to stay on this in the period. MOB reports history of counseling with Chen Messer about 5 years ago and found this intervention helpful at the time. No reports SI or HI. 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 Substance Use History: MOB denies any substance use or abuse issues including alcohol, tobacco, or illicit substances. Family History: Not discussed Drug Screens: none noted in the chart. Family/Social Stressors: Premature delivery of baby, with unplanned . Baby now in the [facility]. MOB reports had previously been in conversation with OBGYN about establishing with a counselor during the , just to have the support in place once the baby was born. MOB not able to do this due to early delivery. Thought a positive change, MOB and FOB did purchase a home when MOB found out she was . Support Systems: MOB reports FOB is ?my best friend? and the person that MOB can most talk to about emotions. MOB reports great practical support from FOB?s mother who is an OB nurse and who MOB reports is an all around nice person. MOB reports to have good support from her family and some friends too. Depression/Shaken Baby/Safe Sleeping: MOB educated on safe sleeping, shaken baby prevention, and mood and anxiety disorders. ASSESSMENT: Met with MOB in room, introduced to self and role. MOB with good eye contact, appropriate affect, smiled at appropriate times, and mood congruent to affect. MOB admits there was stress during the delivery and with baby going to the SCN, but that MOB is trying to keep a positive perspective in that the staff was caring and compassionate with MOB, as well as that MOB and baby are alive and healthy right now. MOB reports baby is progressing well in the SCN and this is also helping MOB. MOB reports to feel she manages her anxiety well these days, but would not be opposed to restarting counseling should symptoms of mood and anxiety issues surface in the period. MOB engaged in conversation about mood and anxiety issues, asking questions and giving feedback. MOB accepting of all resources offered and also accepted a Help Me Grow referral, which will be done closer to the time baby is discharged from the SCN. 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 MOB reports to have adequate support from family and reports breast feeding is going well so far. PLAN: MOB will discharged when medically ready. No other services requested from [facility] standpoint. Social work will continue to follow this family from the [facility], where this insurance underwriter is also the assigned social and political studies professor ,and to which MOB was educated to. MOB has been given mood and anxiety disorders packet that includes local, online, reading, and crisis resources. [facility]G referral will be made when baby is discharged from the [facility]. No other services requested or indicated. -FARRAH Hayes, DIGITAL COMMUNITY MANAGER
[2019-10-11 20:58] VITALS: BP 109/73; PULSE 86; RESP 18; TEMP 37.3; O2SAT 97
[2019-10-11 21:05] VITALS: BP 109/73; PULSE 86
[2019-10-11] MEDS: Sertraline 50 MG Tablet PO (21:10)
[2019-10-12] MEDS: Naproxen 250 MG Tablet PO ×3 (00:03→17:18)
[2019-10-12 03:44] VITALS: BP 117/79; PULSE 74; RESP 18; TEMP 36.8; O2SAT 97
--- NOTE | 2019-10-12 08:10 | PCM.PN.OB ---
Patient Problems: Active and Suspected Problems (Last Reviewed 09/25/19 @ 08:32 by Alicia Roa) premature rupture of membranes (PPROM) with onset of labor after 24 hours of rupture in first trimester, antepartum (Acute) Subjective: doing well no complaints pain controlled no CP SOB N V ambulating well tolerating po lochia moderate, going well - Physical Exam Vitals/I&O's: Vital Signs Temp Pulse Resp BP Pulse Ox 98.2 F 74 18 117/79 97 10/12/19 03:44 10/12/19 03:44 10/12/19 03:44 10/12/19 03:44 10/12/19 03:44 Oxygen Delivery Method Room Air Weight: 210 lb 5.136 oz Body Mass Index (BMI) 33.9 Intake and Output for Last 24 Hours 10/10/19 10/11/19 10/12/19 23:59 23:59 23:59 Intake Total 2001. / 2001. Output Total 1800 / 1800 Balance .00 / .00 General: Alert, Oriented x3 Abdomen: Soft, Non-Distended, - - Dressing dry and intact except old drainage. FF below U Current Medications Acetaminophen (Tylenol) 1,000 mg PO Q8H PRN PRN PRN Reason: Pain Score 1-3/10 Last Admin: 10/10/19 18:24 Dose: 1,000 mg Documented by: Bisacodyl (Dulcolax) 10 mg RECTAL UD PRN PRN Reason: If no BM Enoxaparin Sodium (Lovenox) 40 mg SC DAILY [facility] Last Admin: 10/11/19 11:36 Dose: 40 mg Documented by: Hydrocortisone (Hytone) 1 applic TOPICAL TID PRN PRN; Protocol PRN Reason: Discomfort Naloxone HCl 4 mg/ Dextrose 504 mls @ 0 mls/hr IV .Q0M PRN; Protocol PRN Reason: Respiratory depression Metoprolol Succinate (Toprol Xl (Beta Minesh)) 12.5 mg PO DAILY@2100 [facility] Last Admin: 10/11/19 21:05 Dose: Not Given Documented by: Naloxone HCl (Narcan) 0.02 mg IV Q1M PRN PRN Reason: RR <10 and pt unresponsive Naproxen (Naprosyn) 250 - 500 mg PO Q8H PRN PRN PRN Reason: Pain Score 1-3/10 Last Admin: 10/12/19 00:03 Dose: 500 mg Documented by: Ondansetron HCl (Zofran) 4 mg IV Q4H PRN PRN PRN Reason: Nausea Oxycodone HCl (Oxyir) 5 - 10 mg PO Q4H PRN PRN PRN Reason: Pain Score 4-10/10 Multivit/Folic Acid/Iron (Prenatabs Fa) 1 tablet PO DAILY [facility] Last Admin: 10/11/19 10:28 Dose: 1 tablet Documented by: Prochlorperazine Edisylate (Compazine Iv) 10 mg IV Q6H PRN PRN PRN Reason: NAUSEA Senna/Docusate Sodium (Senokot-S, Tita-Colace) 1 - 2 tablet PO DAILY PRN PRN Reason: Constipation Last Admin: 10/11/19 10:28 Dose: 2 tablet Documented by: Sertraline HCl (Zoloft) 50 mg PO DAILY@2100 [facility] Last Admin: 10/11/19 21:10 Dose: 50 mg Documented by: Simethicone (Mylicon) 80 mg PO HS PRN PRN Reason: Indigestion/stomach pain Sodium Chloride () 5 - 15 ml IV UD PRN PRN Reason: SALINE FLUSH Last Admin: 10/11/19 08:16 Dose: 5 ml Documented by: Medical Necessity - Tobacco Use Smoking Status: Never smoker Assessment/Plan All Active Problems (Last Reviewed 09/25/19 @ 08:32 by Alicia Roa) Threatened labor (Acute) premature rupture of membranes (PPROM) with onset of labor after 24 hours of rupture in first trimester, antepartum (Acute) Diabetes mellitus screening declined by patient (Acute) Low serum potassium (Acute) Anxiety (Acute) (Acute) Supervision of normal first (Acute) Tachycardia (Resolved) Threatened labor (Resolved) s/p LTCS PPD # 3 1. routine post care 2. breast feeding- support given 3. rh positive 4. rubella immune 4. Hotel status today as baby still in SCN
--- NOTE | 2019-10-12 08:11 | DCINST_ITS ---
Additional Instructions: If you experience any of the following, contact your healthcare provider. * Bleeding that soaks a pad every hour for 2 hours * Fever 100.4 or higher * Unrelieved incision or abdominal pain * Swelling, redness, discharge or bleeding from your incision or episiotomy site * Your incision begins to separate * Problems urinating (including inability to urinate or burning while urinating). * Visual changes * Severe headache * Flu-like symptoms * Pain or redness in one of both of your breasts * Pain, warmth, tenderness or swelling in your legs, especially the calf area * Frequent nausea and vomiting * Symptoms of depression or anxiety If you experience any of the following, call 911 or go to the nearest Emergency Room. * Chest pain * Problems breathing * Seizure activity * Partial or complete paralysis of a body part, slurred speech, weakness or drooping of the face, or a sudden inability to walk or hold your balance Allergies/Adverse Reactions: Allergies codeine Allergy (Mild, Verified 10/09/19 03:07) vomiting metronidazole [From Flagyl] Allergy (Mild, Verified 10/09/19 03:07) vomiting Penicillins Allergy (Mild, Verified 10/09/19 03:07) hives Medications to take at Discharge metoprolol succinate ER 25 mg tablet,extended release 24 hr 12.5 mg PO DAILY 04/04/19 sertraline 50 mg tablet 50 mg PO DAILY 04/04/19 vitamin#30 30 mg iron-10 mg iron-folic acid 1 mg-omg3 capsule 1 cap PO DAILY cap 06/26/19 Naproxen [Naprosyn] 500 mg PO BID PRN PRN #60 tab 10/12/19 The following prescriptions were given: Naproxen [Naprosyn] 500 mg PO BID PRN PRN #60 tab PRN Reason: Pain Transmission Status: Received by [facility] Follow-Up: Call to make an appointment with your doctor for an incision check in 1-2 weeks. You will also need a 6 week post- follow up appointment. Test results from this visit will be discussed in further detail at your follow- up appointment, if applicable. Primary Care Physician: Tammi Landers, CINTIA-C [Primary Care Provider] -
--- NOTE | 2019-10-12 08:11 | PCM.DCCSEC ---
Additional Instructions: If you experience any of the following, contact your healthcare provider. Bleeding that soaks a pad every hour for 2 hours Fever 100.4 or higher Unrelieved incision or abdominal pain Swelling, redness, discharge or bleeding from your incision or episiotomy site Your incision begins to separate Problems urinating (including inability to urinate or burning while urinating). Visual changes Severe headache Flu-like symptoms Pain or redness in one of both of your breasts Pain, warmth, tenderness or swelling in your legs, especially the calf area Frequent nausea and vomiting Symptoms of depression or anxiety If you experience any of the following, call 911 or go to the nearest Emergency Room. Chest pain Problems breathing Seizure activity Partial or complete paralysis of a body part, slurred speech, weakness or drooping of the face, or a sudden inability to walk or hold your balance Allergies/Adverse Reactions: Allergies codeine Allergy (Mild, Verified 10/09/19 03:07) vomiting metronidazole [From Flagyl] Allergy (Mild, Verified 10/09/19 03:07) vomiting Penicillins Allergy (Mild, Verified 10/09/19 03:07) hives Medications to take at Discharge metoprolol succinate ER 25 mg tablet,extended release 24 hr 12.5 mg PO DAILY 04/04/19 sertraline 50 mg tablet 50 mg PO DAILY 04/04/19 vitamin#30 30 mg iron-10 mg iron-folic acid 1 mg-omg3 capsule 1 cap PO DAILY cap 06/26/19 Naproxen [Naprosyn] 500 mg PO BID PRN PRN #60 tab 10/12/19 The following prescriptions were given: Naproxen [Naprosyn] 500 mg PO BID PRN PRN #60 tab PRN Reason: Pain Transmission Status: Received by [facility] Follow-Up: Call to make an appointment with your doctor for an incision check in 1-2 weeks. You will also need a 6 week post- follow up appointment. Test results from this visit will be discussed in further detail at your follow-up appointment, if applicable. Primary Care Physician: Tammi Landers NP-C [Primary Care Provider] -
--- NOTE | 2019-10-12 08:13 | PCM.DC.SUM ---
Discharge Date and Diagnosis - Problem List Patient Problems: Active and Suspected Problems (Last Reviewed 09/25/19 @ 08:32 by Alicia Roa) premature rupture of membranes (PPROM) with onset of labor after 24 hours of rupture in first trimester, antepartum (Acute) Date of Admission: 10/09/19 - Primary Discharge Diagnosis Active and Suspected Problems (Last Reviewed 09/25/19 @ 08:32 by Alicia Roa) premature rupture of membranes (PPROM) with onset of labor after 24 hours of rupture in first trimester, antepartum (Acute) - Secondary Discharge Diagnosis Chronic Problems (Last Reviewed 09/25/19 @ 08:32 by Alicia Roa) Hypertension (Chronic) metoprolol, normal cmp, ekg, urine protein creatinine ratio. sees etienne green. plan growth us at 30 weeks and 34, plan weekly nsts after 32 and IOL by 38 Hospital Course and Treatment Consultations 10/09/19 04:16 Consult: Anesthesia Routine Comment: Reason For Exam: Labor Operations: - - primary LTCS Summary of Care Provided: The patient is a 28 year old F primary low transverse c section for CPD. Routine postop care. No restrictions, regular diet. Patient Problems: Active and Suspected Problems (Last Reviewed 09/25/19 @ 08:32 by Alicia Roa) premature rupture of membranes (PPROM) with onset of labor after 24 hours of rupture in first trimester, antepartum (Acute) - Physical Exam Vitals/I&O's: Vital Signs Temp Pulse Resp BP Pulse Ox 98.2 F 74 18 117/79 97 10/12/19 03:44 10/12/19 03:44 10/12/19 03:44 10/12/19 03:44 10/12/19 03:44 Oxygen Delivery Method Room Air Weight: 210 lb 5.136 oz Body Mass Index (BMI) 33.9 Intake and Output for Last 24 Hours 10/10/19 10/11/19 10/12/19 23:59 23:59 23:59 Intake Total Output Total 1800 / 1800 Balance Current Medications Acetaminophen (Tylenol) 1,000 mg PO Q8H PRN PRN PRN Reason: Pain Score 1-3/10 Last Admin: 10/10/19 18:24 Dose: 1,000 mg Documented by: Bisacodyl (Dulcolax) 10 mg RECTAL UD PRN PRN Reason: If no BM Enoxaparin Sodium (Lovenox) 40 mg SC DAILY [facility] Last Admin: 10/11/19 11:36 Dose: 40 mg Documented by: Hydrocortisone (Hytone) 1 applic TOPICAL TID PRN PRN; Protocol PRN Reason: Discomfort Naloxone HCl 4 mg/ Dextrose 504 mls @ 0 mls/hr IV .Q0M PRN; Protocol PRN Reason: Respiratory depression Metoprolol Succinate (Toprol Xl (Beta Minesh)) 12.5 mg PO DAILY@2100 [facility] Last Admin: 10/11/19 21:05 Dose: Not Given Documented by: Naloxone HCl (Narcan) 0.02 mg IV Q1M PRN PRN Reason: RR <10 and pt unresponsive Naproxen (Naprosyn) 250 - 500 mg PO Q8H PRN PRN PRN Reason: Pain Score 1-3/10 Last Admin: 10/12/19 00:03 Dose: 500 mg Documented by: Ondansetron HCl (Zofran) 4 mg IV Q4H PRN PRN PRN Reason: Nausea Oxycodone HCl (Oxyir) 5 - 10 mg PO Q4H PRN PRN PRN Reason: Pain Score 4-10/10 Multivit/Folic Acid/Iron (Prenatabs Fa) 1 tablet PO DAILY [facility] Last Admin: 10/11/19 10:28 Dose: 1 tablet Documented by: Prochlorperazine Edisylate (Compazine Iv) 10 mg IV Q6H PRN PRN PRN Reason: NAUSEA Senna/Docusate Sodium (Senokot-S, Tita-Colace) 1 - 2 tablet PO DAILY PRN PRN Reason: Constipation Last Admin: 10/11/19 10:28 Dose: 2 tablet Documented by: Sertraline HCl (Zoloft) 50 mg PO DAILY@2100 [facility] Last Admin: 10/11/19 21:10 Dose: 50 mg Documented by: Simethicone (Mylicon) 80 mg PO PCHS PRN PRN Reason: Indigestion/stomach pain Sodium Chloride () 5 - 15 ml IV UD PRN PRN Reason: SALINE FLUSH Last Admin: 10/11/19 08:16 Dose: 5 ml Documented by: Home Medications: Medications to take at Discharge metoprolol succinate ER 25 mg tablet,extended release 24 hr 12.5 mg PO DAILY 04/04/19 sertraline 50 mg tablet 50 mg PO DAILY 04/04/19 vitamin#30 30 mg iron-10 mg iron-folic acid 1 mg-omg3 capsule 1 cap PO DAILY cap 06/26/19 Naproxen [Naprosyn] 500 mg PO BID PRN PRN #60 tab 10/12/19 Following Prescrptions Were Given to Patient: Naproxen [Naprosyn] 500 mg PO BID PRN PRN #60 tab PRN Reason: Pain Transmission Status: Received by [facility] Primary Care Physician: Tammi Landers NP-C [Primary Care Provider] - Medical Necessity - Tobacco Use Smoking Status: Never smoker Meaningful Use Info Meaningful Use Diagnoses (Choose all that apply): None applicable
[2019-10-12 08:55] VITALS: BP 119/81; PULSE 75; RESP 16; TEMP 36.6; O2SAT 100
[2019-10-12] MEDS: Prenatal Vits Tablet 1 TABLET PO (10:11)
[2019-10-12] MEDS: Enoxaparin 40 MG/0.4 ML Syringe SC (10:11)
[2019-10-12] MEDS: Acetaminophen 500 MG Tablet 1000 MG PO (11:28)
[2019-10-12 13:24] VITALS: BP 122/56; PULSE 81; RESP 16; TEMP 36.6; O2SAT 97
--- NOTE | 2019-10-12 18:07 | NURSING ---
pt. to sushila at 1720, reviewed information sheet and potential for pt.'s room to be needed
== END 2019-10-12 15:20 | disposition home or self-care (01) | DRG 787 ==
PROVIDERS: Admitting Provider Obstetrics & Gynecology; Family Provider Nurse Practitioner Family; PCP Nurse Practitioner Family; Visit Provider Obstetrics & Gynecology
DX: O42.113 Preterm premature rupture of membranes, onset of labor more than 24 hours following rupture, third trimester (principal); O10.92 Unspecified pre-existing hypertension complicating childbirth; O76 Abnormality in fetal heart rate and rhythm complicating labor and delivery; O62.1 Secondary uterine inertia; Z3A.35 35 weeks gestation of pregnancy; Z37.0 Single live birth
CPT/HCPCS: 59025; 59050; 80053; 82570; 84156; 85025; 85027; 86850; 86900; 86901; 87081; 87653; 99218; 99251; J7120; A4216; G0378; G0463; J2405

== ENCOUNTER → 2019-11-17 13:03 | Outpatient (CLI) | payer BC, SELFPAY ==
[2019-11-17 09:18] VITALS: BMI 33.9
[2019-11-21 18:44] LABS: HPV Reflexed? NOT INDICATED
== END ==
PROVIDERS: Family Provider Nurse Practitioner Family; PCP Nurse Practitioner Family; Visit Provider Obstetrics & Gynecology
DX: Z12.4 Encounter for screening for malignant neoplasm of cervix (principal)
CPT/HCPCS: 88175; G0145

== ENCOUNTER → 2021-05-22 | Outpatient (CLI) | payer BC, SELFPAY ==
[2021-05-22 09:13] VITALS: BMI 33.7
[2021-05-22 12:49] LABS: Amphetamine Urine VISTA NEGATIVE (<1000 ng/mL); Barbiturate Urine VISTA NEGATIVE (< 200 ng/mL); Benzodiazepine Urine VISTA NEGATIVE (< 200 ng/mL); Cocaine Urine VISTA NEGATIVE (< 300 ng/mL); Ecstacy Urine VISTA NEGATIVE (< 500 ng/mL); Methadone Urine VISTA NEGATIVE (< 300 ng/mL); PCP Urine VISTA NEGATIVE (< 25 ng/mL); THC Urine VISTA NEGATIVE (< 50 ng/mL); Vista UDS pH Range 5
[2021-05-24 03:07] LABS: Chlamydia By Nucleic Acid AMP Negative (Negative)
[2021-05-24 11:40] LABS: Gonococcus By Nucleic Acid AMP Negative (Negative)
== END | disposition home or self-care (01) ==
LOC: LABSPEC 11:49
PROVIDERS: Referring Provider Obstetrics & Gynecology; Visit Provider Obstetrics & Gynecology
DX: Z34.90 Encounter for supervision of normal pregnancy, unspecified, unspecified trimester (principal)
CPT/HCPCS: 80307; 87086; 87088; 87491; 87591

== ENCOUNTER → 2021-06-05 09:53 | Outpatient (CLI) | payer BC, SELFPAY ==
[2021-05-22 09:13] VITALS: BMI 33.7
[2021-06-05 10:20] LABS: Absolute Lymphocyte Count 1.78 X10^3/uL (0.83-4.51); Absolute Neutrophil Count 6.4 X10^3/uL (2.0-7.7); Basophil# 0.02 X10^3/uL; Basophil% 0.2 % (0-1); Eosinophil# 0.03 X10^3/uL; Eosinophils% 0.3 % (0-5); Hematocrit 38.4 % (37-47); Hemoglobin 13.1 g/dL (12.0-15.0); Lymphocyte # 1.78 X10^3/ul (0.83-4.51); Lymphocyte % 20.5 % (19-41); Mean Corp Hgb Conc 34.1 g/dL (32-36); Mean Corpuscular Hgb 28.5 pg (27.0-32.0); Mean Corpuscular Volume 83.5 fL (81-99); Mean Platelet Vol. 10.8 fl (6.2-12.0); Monocyte% 4.6 % (0-10); NRBC Flagged by Analyzer 0 % (0-5); Neutrophil # 6.42 X10^3/uL (2.7-7.7); Neutrophil % 74.1 % (47-70); Platelet Count 281 K/mm3 (150-450); RBC Distribution Width SD 39.4 fl (35.1-43.9); White Blood Count 8.7 K/mm3 (4.4-11.0)
[2021-06-05 11:15] LABS: NATERA MAILED SPECIMEN
[2021-06-05 11:23] LABS: HIV - WCH Non-Reactive (Nonreactive); Hepatitis B Surface Antigen Non-Reactive (Nonreactive); Hepatitis C Antibody Non-Reactive (Nonreactive); Rubella IgG Reactive (Nonreactive); Syphilis Antibodies Non-reactive
== END ==
PROVIDERS: Referring Provider Obstetrics & Gynecology; Visit Provider Obstetrics & Gynecology
DX: Z34.81 Encounter for supervision of other normal pregnancy, first trimester (principal)
CPT/HCPCS: 36415; 85025; 86703; 86762; 86780; 86803; 86850; 86900; 86901; 87340

== ENCOUNTER → 2021-06-25 14:02 | Outpatient (CLI) | payer BC, SELFPAY ==
[2021-06-25] MEDS: Dextrose 5%-Lactated Ringers 1,000 ML 999 ML IV (14:14)
[2021-06-25] MEDS: Ondansetron 4 MG/2 ML Vial IV (14:14)
[2021-06-25 14:20] VITALS: BP 138/67; PULSE 88; RESP 16; TEMP 36.3; O2SAT 100; BMI 34.0
[2021-06-25 15:24] VITALS: BP 120/57; PULSE 81; RESP 16; TEMP 36.2; O2SAT 100
== END ==
LOC: ONC 14:02 → MEDOUTP 14:39
PROVIDERS: Referring Provider Obstetrics & Gynecology; Visit Provider Obstetrics & Gynecology
DX: E86.0 Dehydration (principal)
CPT/HCPCS: 96361 ×2; 96374; J2405

== ENCOUNTER → 2021-08-11 08:19 | Outpatient (CLI) | payer BC, SELFPAY ==
[2021-06-20 11:53] VITALS: BMI 33.7
--- NOTE | 2021-08-11 08:22 | US_ITS ---
INDICATION: anatomy EXAMINATION: Ultrasound US OB Greater Than 14 Weeks TECHNIQUE: Transabdominal pelvic ultrasound was performed. COMPARISON: None. LMP: Unknown. Beta-hCG: Unknown. Provided EGA: None. FINDINGS: INTRAUTERINE GESTATION(s): Single. ESTIMATED GESTATIONAL AGE: 20 weeks 5 days ESTIMATED DUE DATE (LAURA): 12/24/2021 HEART MOTION is 157 bpm. AMNIOTIC FLUID INDEX (DANNY): Within normal limits ESTIMATED WEIGHT: Percentile %. BIOPHYSICAL PROFILE (BPP): Not assessed. PRESENTATION: Cephalic PLACENTA: Anterior. There is no placenta previa or abruption. CERVIX: The cervix is closed. The cervix measures 3.9 cm in length. Sonographic evaluation of anatomy demonstrates unremarkable cranium with the lateral ventricles measuring 0.65 cm, cerebellum measuring 2.10 cm cisterna magna measuring 0.44 cm, unremarkable face/nose and lips, choroid plexus is visualized and is unremarkable. Unremarkable evaluation of the chest, abdomen, pelvis, spine and extremities. Male gender. US/OB Anatomy Scan IMPRESSION: Single live intrauterine of 20 weeks 5 days gestation. No structural abnormality. Electronically Signed: Lyle Joe MD at 14:48 EDT Tel , Service support ,
== END ==
PROVIDERS: Referring Provider Obstetrics & Gynecology; Visit Provider Obstetrics & Gynecology
DX: O09.90 Supervision of high risk pregnancy, unspecified, unspecified trimester (principal); Z3A.20 20 weeks gestation of pregnancy
CPT/HCPCS: 76805; 76817

== ENCOUNTER → 2021-10-15 11:40 | Outpatient (CLI) | payer BC, SELFPAY ==
[2021-10-15 12:41] LABS: Absolute Lymphocyte Count 1.97 X10^3/uL (0.83-4.51); Absolute Neutrophil Count 6.9 X10^3/uL (2.0-7.7); Basophil# 0.02 X10^3/uL; Basophil% 0.2 % (0-1); Eosinophil# 0.03 X10^3/uL; Eosinophils% 0.3 % (0-5); Hemoglobin 11.4 g/dL (12.0-15.0); Lymphocyte # 1.97 X10^3/ul (0.83-4.51); Lymphocyte % 20.5 % (19-41); Mean Corp Hgb Conc 33.5 g/dL (32-36); Mean Corpuscular Hgb 28.1 pg (27.0-32.0); Mean Corpuscular Volume 83.7 fL (81-99); Mean Platelet Vol. 10.7 fl (6.2-12.0); Monocyte# 0.58 X10^3/uL; NRBC Flagged by Analyzer 0 % (0-5); Neutrophil # 6.94 X10^3/uL (2.7-7.7); Neutrophil % 72.4 % (47-70); Platelet Count 268 K/mm3 (150-450); RBC Distribution Width CV 13.3 % (11.6-14.6); RBC Distribution Width SD 40.8 fl (35.1-43.9); Red Blood Count 4.06 M/mm3 (4.2-5.4); White Blood Count 9.6 K/mm3 (4.4-11.0)
[2021-10-15 12:52] LABS: Glucose Challenge Gest 1H 50g 170 mg/dL (70-140)
== END ==
PROVIDERS: Referring Provider Nurse Practitioner Women's Health; Visit Provider Nurse Practitioner Women's Health
DX: Z34.92 Encounter for supervision of normal pregnancy, unspecified, second trimester (principal); Z3A.17 17 weeks gestation of pregnancy
CPT/HCPCS: 36415; 82950; 85025

== ENCOUNTER → 2021-10-22 08:45 | Outpatient (CLI) | payer BC, SELFPAY ==
[2021-10-22 09:33] LABS: Glucose Challenge Gest 1H 50g 141 mg/dL (70-140)
== END ==
PROVIDERS: Referring Provider Obstetrics & Gynecology; Visit Provider Obstetrics & Gynecology
DX: O09.90 Supervision of high risk pregnancy, unspecified, unspecified trimester (principal); Z3A.00 Weeks of gestation of pregnancy not specified
CPT/HCPCS: 36415; 82950

== ENCOUNTER 2021-10-28 00:17 | Outpatient (CLI) | payer BC, SELFPAY ==
[2021-10-28 00:40] VITALS: PULSE 90; O2SAT 99
[2021-10-28 00:43] VITALS: BP 124/71; PULSE 90; TEMP 36.7; O2SAT 98
[2021-10-28 00:46] VITALS: BMI 32.8
--- NOTE | 2021-10-28 09:51 | OB.TRI.PN_ITS ---
Progress Notes Date of Service: 10/27/21 Progress Note: Patient presents for triage evaluation secondary to abdominal pain and ctx FHT: 140 Moderate variability reactive no decelerations category I tracing [place]: no regular Contractions Assessment and plan: abdominal pain around umbilicus where small hernia is pr sent- passing gas, no N/V, stable Reactive NST, reassuring maternal and status patient discharged to home to follow-up as scheduled. See problem list details for additional plan information. Charges/Coding Procedures Urinary/Genital [id number]: [id number] non-stress test Interp
== END 2021-10-28 01:40 | disposition home or self-care (01) ==
LOC: WPOUT 00:26 → WP 00:26
PROVIDERS: Visit Provider Obstetrics & Gynecology
DX: O26.899 Other specified pregnancy related conditions, unspecified trimester (principal); R10.9 Unspecified abdominal pain; K46.9 Unspecified abdominal hernia without obstruction or gangrene
CPT/HCPCS: 59025; 59050; 99218; G0378

== ENCOUNTER → 2021-11-04 08:14 | Outpatient (CLI) | payer BC, SELFPAY ==
--- NOTE | 2021-11-04 08:16 | US_ITS ---
STUDY: SECOND AND THIRD TRIMESTER OBSTETRICAL ULTRASOUND REASON FOR EXAM: Female, 30 years old growth LMP: 03/23/2021 TECHNIQUE: Transabdominal TECHNICAL QUALITY: Adequate. PRIOR ULTRASOUND: 08/11/2021 FINDINGS: There is a single intrauterine fetus. The fetus is in a cephalic presentation. There is demonstrated cardiac activity with a heart rate of 160 bpm. There is a normal amniotic fluid volume. The largest amniotic fluid pocket measures 7.5 cm. The amniotic fluid index (DANNY) is 18.7 cm. The placenta is anterior in location and is not low lying. There are Grade 1 placental changes. The cervix measures 3.3 cm in length. The adnexal regions are not visualized. BIOMETRY: BPD: 8.5 cm: 34 weeks, 0 days HC: 32.2 cm: 36 weeks, 2 days AC: 30.8 cm: 34 weeks, 5 days FL: 6.7 cm: 34 weeks, 2 days CI: 74.72% FL/BPD: 79.16% FL/HC: 20.78% FL/AC: 21.69% HC/AC: 1.04 age by current US: 35 weeks, 3 days. LAURA by current US: 12/06/2021. Estimated weight: 2484 grams, +/- 373 grams, 96 %. Age by LMP: 32 weeks, 2 days. LAURA by LMP: 12/28/2021. US/OB Limited With Biometrics IMPRESSION: Living intrauterine of 35 weeks 3 days as described above. age is discordant by age by LMP of 32 weeks 2 days suggestive of macrosomia or incorrect dates. Electronically Signed: Camilo Giraldo MD at 9:20 EST Tel , Service support ,
== END ==
PROVIDERS: Referring Provider Obstetrics & Gynecology; Visit Provider Obstetrics & Gynecology
DX: I10 Essential (primary) hypertension (principal)
CPT/HCPCS: 76816

== ENCOUNTER 2021-11-11 08:49 | Outpatient (CLI) | payer BC, SELFPAY ==
--- NOTE | 2021-11-11 08:52 | US_ITS ---
STUDY: SECOND AND THIRD TRIMESTER OBSTETRICAL ULTRASOUND - LIMITED REASON FOR EXAM: Female, 31 years old danny LMP: 03/23/2021 PRIOR ULTRASOUND: 11/04/2021 TECHNIQUE: Transabdominal TECHNICAL QUALITY: Adequate. FINDINGS: There is a single intrauterine fetus. The fetus is in a cephalic presentation. There is demonstrated cardiac activity with a heart rate of 164 bpm. There is increased amniotic fluid volume consistent with polyhydramnios. The largest amniotic fluid pocket measures 7.6 cm. The amniotic fluid index (DANNY) is 21.7 cm. The placenta is anterior in location and is not low lying. There are Grade 1 placental changes. The cervix measures 3.4 cm in length. Age by LMP: 33 weeks, 2 days. LAURA by LMP: 12/28/2021. US/OB Limited (No Biometrics) IMPRESSION: Living intrauterine of 33 weeks 2 days as described above. Polyhydramnios with an amniotic fluid index of 21.7 cm. Electronically Signed: Camilo Giraldo MD at 12:39 EST Tel , Service support ,
== END 2021-11-11 23:59 | disposition short-term general hospital (02) ==
LOC: OPUS 08:50
PROVIDERS: Referring Provider Obstetrics & Gynecology; Visit Provider Obstetrics & Gynecology
DX: O36.60X0 Maternal care for excessive fetal growth, unspecified trimester, not applicable or unspecified (principal); Z3A.33 33 weeks gestation of pregnancy
CPT/HCPCS: 76815

== ENCOUNTER 2021-11-17 16:19 | Outpatient (CLI) | payer BC, SELFPAY ==
[2021-11-17 16:46] LABS: ROM Internal Control Test YES-OK TO RESULT pt. (Internal QC); ROM Patient Test Negative (Negative)
== END 2021-11-17 23:59 | disposition short-term general hospital (02) ==
PROVIDERS: Referring Provider Obstetrics & Gynecology; Visit Provider Obstetrics & Gynecology
DX: O26.899 Other specified pregnancy related conditions, unspecified trimester (principal); N89.8 Other specified noninflammatory disorders of vagina; Z3A.00 Weeks of gestation of pregnancy not specified
CPT/HCPCS: 84112

== ENCOUNTER 2021-11-21 08:51 | Outpatient (CLI) | payer BC, SELFPAY ==
--- NOTE | 2021-11-21 08:53 | US_ITS ---
STUDY: SECOND AND THIRD TRIMESTER OBSTETRICAL ULTRASOUND - LIMITED REASON FOR EXAM: Female, 31 years old chronic HTN -- WEEKLY DANNY STANDING ORDER LMP: 03/23/2021. PRIOR ULTRASOUND: Comparison is made with prior study dated 11/11/2021. TECHNIQUE: Transabdominal TECHNICAL QUALITY: Adequate. FINDINGS: There is a single intrauterine fetus. The fetus is in a cephalic presentation. There is demonstrated cardiac activity with a heart rate of 145 bpm. There is a normal amniotic fluid volume. The largest amniotic fluid pocket measures 9.8 cm. The amniotic fluid index (DANNY) is 20.02 cm. The placenta is anterior in location and is not low lying. There are Grade 1 placental changes. The cervix measures 3.4 cm in length. BIOMETRY: Age by LMP: 34 weeks, 5 days. LAURA by LMP: 12/28/2021. age by prior US: 37 weeks, 6 days. LAURA by prior US: 12/06/2021. US/OB Limited (No Biometrics) IMPRESSION: Normal amniotic fluid. Electronically Signed: Papo Antonio MD at 10:33 EST , Service support ,
== END 2021-11-21 23:59 | disposition short-term general hospital (02) ==
PROVIDERS: Referring Provider Obstetrics & Gynecology; Visit Provider Obstetrics & Gynecology
DX: I10 Essential (primary) hypertension (principal)
CPT/HCPCS: 76815

== ENCOUNTER 2021-11-26 12:09 | Outpatient (CLI) | payer BC, SELFPAY ==
--- NOTE | 2021-11-26 12:16 | US_ITS ---
STUDY: SECOND AND THIRD TRIMESTER OBSTETRICAL ULTRASOUND - LIMITED REASON FOR EXAM: Female, 31 years old HTN amniotic fluid index. LMP: 03/23/2021. PRIOR ULTRASOUND: Comparison is made with prior examination dated 11/21/2021. TECHNIQUE: Transabdominal TECHNICAL QUALITY: Adequate. FINDINGS: There is a single intrauterine fetus. The fetus is in a cephalic presentation. There is demonstrated cardiac activity with a heart rate of 148 bpm. There is a normal amniotic fluid volume. The largest amniotic fluid pocket measures 8.5 cm x 5.9 cm. The amniotic fluid index (DANNY) is 20.9 cm. The placenta is anterior in location and is not low lying. There are Grade 1 placental changes. BIOMETRY: Age by LMP: 35 weeks, 3 days. LAURA by LMP: 12/28/2021. US/OB Limited (No Biometrics) IMPRESSION: Normal amniotic fluid index. Electronically Signed: Papo Antonio MD at 15:27 EST , Service support ,
== END 2021-11-26 23:59 | disposition short-term general hospital (02) ==
LOC: OPUS 12:10 → US 12:11
PROVIDERS: Referring Provider Obstetrics & Gynecology; Visit Provider Obstetrics & Gynecology
DX: O16.9 Unspecified maternal hypertension, unspecified trimester (principal)
CPT/HCPCS: 76815

== ENCOUNTER 2021-11-30 22:40 | Outpatient (CLI) | payer BC, SELFPAY ==
[2021-11-30 22:53] VITALS: TEMP 36.8
[2021-11-30 22:57] VITALS: PULSE 98; O2SAT 99
--- NOTE | 2021-11-30 22:58 | OB.TRI.HP_ITS ---
HPI - General HPI Narrative KATT LORA, is a 31 y/o , 2 prior sections who presents with complaint of possible SROM [facility] Medical History (Updated 12/12/21 @ 08:[address] Katie Brunner, DO) Abnormal glucose affecting Anxiety Palpitations white coat syndrome Home Medications prenat.vits,claudia,czi-ezvc-axsnh 1 tab PO DAILY 05/08/21 [History Last Taken 11/30/21 08:00] sertraline 100 mg tablet 100 mg PO DAILY #30 tab 10/21/21 [Rx Last Taken 11/29/21 22:00] blood sugar diagnostic #100 ea 11/10/21 [Rx Last Taken Unknown] naproxen 500 mg PO BID PRN PRN #30 tab 12/02/21 [Rx Last Taken Unknown] oxycodone-acetaminophen [Percocet] 1 tab PO Q6H PRN 7 Days #20 tab 12/02/21 [Rx Last Taken Unknown] Allergy/AdvReac Type Severity Reaction Status Date / Time codeine Allergy Mild vomiting Verified 11/30/21 23:13 metronidazole [From Flagyl] Allergy Mild vomiting Verified 11/30/21 23:13 Penicillins Allergy Mild hives Verified 11/30/21 23:13 Family History Mother Myocardial infarction Hypertension Anxiety Father Diabetes Tachycardia Surgical History (Updated 12/02/21 @ 18:[address] 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 Date Name GA/Weeks Outcome Route Bth Weight Gen Labor Lgth Anesthesia Del Locatn Provider FOB Unknown 36 live - [facility] SM 10/09/19 Patric 35 live - Male epid ural [facility] Delivery Date: PPROM Jess Marcus Delivery Date: 10/09/19 Hypertension, CPD- failed vacuum. PRoM RamonaGisselle ANT Constitutional Constitutional: Reports systems reviewed and no addt'l complaints, except as documented Gastrointestinal Gastrointestinal: Denies bloating, constipation, cramping, diarrhea, nausea or vomiting Genitourinary Genitourinary: Reports other Details: Denies vaginal odor, vaginal bleeding, or vaginal discharge ; Denies difficulty urinating or flank pain Physical Exam HEENT normocephalic Resp normal respiratory effort and normal air movement no CVA tenderness Extremity normal to inspection General Extremity: edema bilateral (trace ) NST FHR Rate Baby A Baseline: 130 Variability:: Moderate Accelerations:: 15 x 15 Decelerations:: None NST Reactive:: Yes FHR Category:: Category I Assessment & Plan (1) delivery delivered: COMMENT: 36 PPROM [id number] coby Melendez (2) Gestational diabetes: QUALIFIERS: Gestational diabetes mellitus control: diet-controlled Trimester: third trimester Qualified Code(s): O24.410 - Gestational diabetes mellitus in , diet controlled COMMENT: due to macrosomia:growth q 4 wk, weekly NST (3) HTN (hypertension): QUALIFIERS: Hypertension type: unspecified Qualified Code(s): I10 - Essential (primary) hypertension COMMENT: in past, no meds currently (4) Anxiety: COMMENT: encouraged counseling, zoloft-stable/ stable 10/09 (5) False labor: PLAN: ROM plus negative. labor precautions discussed plan for rpt sectio marybeth 39 weeks Charges/Coding Multi Select Codes Visit Charges Office Visit/Consults: 42008 OV L3 Est Urinary/Genital Urinary/Genital CPT Codes: 48010-90 non-stress test Interp
[2021-11-30 22:59] VITALS: BP 136/82; PULSE 96
[2021-11-30 23:12] VITALS: BMI 33.1
[2021-11-30 23:26] LABS: ROM Internal Control Test YES-OK TO RESULT pt. (Internal QC); ROM Patient Test Negative (Negative)
[2021-11-30 23:59] LABS: Color, Urine Yellow (Yellow); Glucose, Dipstick Normal (Normal); Ketone-Dipstick 15 mg/dl (Negative); Leukocyte Esterase-Dipstick 100 /ul (Negative); Nitrite-Dipstick Negative (Negative); Occult Blood-Urine Negative /ul (Negative); Protein-Dipstick Negative (Negative); Urine Bilirubin Dipstick Negative (Negative); Urine Clarity Clear (Clear); Urine Urobilinogen 1 mg/dl (Normal)
[2021-12-01 00:36] LABS: Bedside Glucose 81 mg/dL (70-110)
== END 2021-12-01 01:00 | disposition home or self-care (01) ==
LOC: WPOUT 22:43 → WP 22:43
PROVIDERS: Visit Provider Obstetrics & Gynecology
DX: O47.9 False labor, unspecified (principal); O24.410 Gestational diabetes mellitus in pregnancy, diet controlled; O99.340 Other mental disorders complicating pregnancy, unspecified trimester; F41.9 Anxiety disorder, unspecified; O16.9 Unspecified maternal hypertension, unspecified trimester; Z3A.00 Weeks of gestation of pregnancy not specified; Z79.899 Other long term (current) drug therapy
CPT/HCPCS: 59025; 59050; 81002; 82962; 84112; 99218; G0378

== ENCOUNTER 2021-12-02 14:10 | Inpatient (IN) | payer BC, SELFPAY ==
[2021-12-02] VITALS (15 sets, daily range): BP systolic 99–142; BP diastolic 52–83; PULSE 67–95; RESP 12–16; TEMP 36.2–36.7; O2SAT 94–100; BMI 33.0
--- NOTE | 2021-12-02 13:50 | US_ITS ---
STUDY: SECOND AND THIRD TRIMESTER OBSTETRICAL ULTRASOUND - LIMITED REASON FOR EXAM: Female, 31 years old DANNY LMP: 03/23/2021. PRIOR ULTRASOUND: Comparison is made with prior study dated 11/26/2021. TECHNIQUE: Transabdominal TECHNICAL QUALITY: Adequate. FINDINGS: There is a single intrauterine fetus. The fetus is in a cephalic presentation. There is demonstrated cardiac activity with a heart rate of 158 bpm. There is a normal amniotic fluid volume. The largest amniotic fluid pocket measures 8.2 cm. The amniotic fluid index (DANNY) is 21.7 cm. The placenta is anterior in location and is not low lying. There are Grade 1 placental changes. BIOMETRY: Age by LMP: 36 weeks, 2 days. LAURA by LMP: 12/28/2021. US/OB Limited (No Biometrics) IMPRESSION: Normal amniotic fluid index. Electronically Signed: Papo Antonio MD at 13:43 EST ,
[2021-12-02 14:08] LABS: ROM Internal Control Test YES-OK TO RESULT pt. (Internal QC)
[2021-12-02 14:09] LABS: ROM Patient Test POSITIVE (Negative)
[2021-12-02] MEDS: Lactated Ringers 1,000 ML 150 ML IV (15:00)
[2021-12-02 15:13] LABS: Absolute Lymphocyte Count 1.93 X10^3/uL (0.83-4.51); Absolute Neutrophil Count 5.8 X10^3/uL (2.0-7.7); Basophil# 0.01 X10^3/uL; Basophil% 0.1 % (0-1); Eosinophil# 0.02 X10^3/uL; Eosinophils% 0.2 % (0-5); Hematocrit 34.6 % (37-47); Hemoglobin 11.1 g/dL (12.0-15.0); Lymphocyte # 1.93 X10^3/ul (0.83-4.51); Mean Corp Hgb Conc 32.1 g/dL (32-36); Mean Corpuscular Hgb 26.6 pg (27.0-32.0); Mean Platelet Vol. 11.5 fl (6.2-12.0); Monocyte# 0.61 X10^3/uL; Monocyte% 7.3 % (0-10); NRBC Flagged by Analyzer 0 % (0-5); Neutrophil # 5.78 X10^3/uL (2.7-7.7); Neutrophil % 68.8 % (47-70); Platelet Count 258 K/mm3 (150-450); Red Blood Count 4.17 M/mm3 (4.2-5.4); White Blood Count 8.4 K/mm3 (4.4-11.0)
--- NOTE | 2021-12-02 16:37 | HP.PCM.OB_ITS ---
HPI - General General Date of Admission: 12/02/21 HPI Narrative KATT LORA, is a 31 F who presents with PPROM positive rom plus. she has a complicated by diabetes. Maternal Data Information LAURA Calculator Estimated Delivery Date Method Current WG Current Estimate 12/28/21 LMP (Certain) 36w 2d Other Estimates 12/28/21 Ultrasound #1 36w 2d PFSH PFSH Medical History Abnormal glucose affecting Anxiety Palpitations white coat syndrome Home Medications prenat.vits,claudia,ywm-rgvo-dunng 1 tab PO DAILY 05/08/21 [History Last Taken 11/30/21 08:00] sertraline 100 mg tablet 100 mg PO DAILY #30 tab 10/21/21 [Rx Last Taken 11/29/21 22:00] blood sugar diagnostic #100 ea 11/10/21 [Rx Last Taken Unknown] Allergy/AdvReac Type Severity Reaction Status Date / Time codeine Allergy Mild vomiting Verified 11/30/21 23:13 metronidazole [From Flagyl] Allergy Mild vomiting Verified 11/30/21 23:13 Penicillins Allergy Mild hives Verified 11/30/21 23:13 Family History Mother Myocardial infarction Hypertension Anxiety Father Diabetes Tachycardia Surgical History S/P [place] teeth extracted Social History adopted: No household members: spouse and children number of children: 1 current occupational status: employed 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 Date Name GA/Weeks Outcome Route Bth Weight Gen Labor Lgth Anesthesia Del Locatn Provider FOB 10/09/19 Patric 35 live - Male shanda freedman [facility] Delivery Date: 10/09/19 Hypertension, CPD- failed vacuum. PRoM Gisselle Greene Visit Details Expected Delivery Route/Plan RLTCS with SM Plans Covid status: pos in past, counseled regarding risk of covid in vs vaccination and declined vaccination Flu vaccine: declined Tdap vaccine: considering Rhogam: na LARC form signed: yes Problem list reviewed and updated with the most current plan of care details and appropriate orders placed. Relevant counseling for the gestational age provided. Continue routine care and follow up unless otherwise noted in visit notes/problem list details OB Flowsheet Initial Weight: 201 lb Date -?-?-?-?-?-?-?-?-?-?-?-?- EGA Weight BP Urine Prot -?-?-?-?-?-?-?-?-?-?-?-?- Glucose FHR FuHt Pres Dilation -?-?-?-?-?-?-?-?-?-?-?-?- Effaced St Visit Note 05/22/21 -?-?-?-?-?-?-?-?-?-?-?-?- 8w 4d 201 lb (+0 oz) -?-?-?-?-?-?-?-?-?-?-?-?- 160 -?-?-?-?-?-?-?-?-?-?-?-?- SM?crown-rump le ngth consistent with LMP 06/20/21 -?-?-?-?-?-?-?-?-?-?-?-?- 12w 5d 199 lb (-2 lb) Negative -?-?-?-?-?-?-?-?-?-?-?-?- Negative 160 -?-?-?-?-?-?-?-?-?-?-?-?- GP - no cramping or bleeding. Anatomy scan ordered. 07/21/21 -?-?-?-?-?-?-?-?-?-?-?-?- 17w 1d 197 lb 4 oz (-3 lb 12 oz) 112/60 -?-?-?-?-?-?-?-?-?-?-?-?- 145 -?-?-?-?-?-?-?-?-?-?-?-?- GP - no cramping or bleeding. Anatomy scheduled. Home BGT monitoring nl - aware will need to repeat between 24-28w 08/20/21 -?-?-?-?-?-?-?-?-?-?-?-?- 21w 3d 200 lb 6 oz (-10 oz) 118/60 Trace -?-?-?-?-?-?-?-?-?-?-?-?- Negative 152 -?-?-?-?-?-?-?-?-?-?-?-?- No Vb, LOF. Barbara danis US WNL. Caden. Declines flu 09/17/21 -?-?-?-?-?-?-?-?-?-?-?-?- 25w 3d 206 lb (+5 lb) 130/70 -?-?-?-?-?-?-?-?-?-?-?-?- 150 25 -?-?-?-?-?-?-?-?-?-?-?-?- SM- no vb lof go od fm nor egular ctx 10/09/21 -?-?-?-?-?-?-?-?-?-?-?-?- 28w 4d 206 lb 8 oz (+5 lb 8 oz) 128/70 Trace -?-?-?-?-?-?-?-?-?-?-?-?- Negative 154 28 -?-?-?-?-?-?-?-?-?-?-?-?- MH-No VB,LOF. Go od FM. Considering tdap. Will RTO for 28 wk labs within next wk. 10/21/21 -?-?-?-?-?-?-?-?-?-?-?-?- 30w 2d 207 lb 6 oz (+6 lb 6 oz) 138/60 Negative -?-?-?-?-?-?-?-?-?-?-?-?- Negative 145 30 -?-?-?-?-?-?-?-?-?-?-?-?- SM- n ovb lof go od fm no regular ctx tdap next viist 11/04/21 -?-?-?-?-?-?-?-?-?-?-?-?- 32w 2d 206 lb 8 oz (+5 lb 8 oz) 112/60 -?-?-?-?-?-?-?-?-?-?-?-?- 150 33 -?-?-?-?-?-?-?-?-?-?-?-?- -No VB, LOF. G ood FM. Reactive NST-baby very active. Growth US today: -No VB, LOF. Good FM. Reac tive NST-baby very active. Growth US today: 95% for growth. Has been checking glucose qid-WNL. Rpt growth US 4 weeks, keeping checking BS qid. 11/11/21 -?-?-?-?-?-?-?-?-?-?-?-?- 33w 2d 116/70 -?-?-?-?-?-?-?-?-?-?-?-?- 150 -?-?-?-?-?-?-?-?-?-?-?-?- -NST only reac tive 11/17/21 -?-?-?-?-?-?-?-?-?-?-?-?- 34w 1d 201 lb 4 oz (+4 oz) 138/80 -?-?-?-?-?-?-?-?-?-?-?-?- 150 34 Cephalic 1 -?-?-?-?-?-?-?-?-?-?-?-?- 50 -3 JV- Rom+ c ollected. Only physiologic dc present. if ROM + comes back positive will admit to l&D, give steroids, check erwin, and rpt rom+ 11/26/21 -?-?-?-?-?-?-?-?-?-?-?-?- 35w 3d 118/68 Negative -?-?-?-?-?-?-?-?-?-?-?-?- Negative -?-?-?-?-?-?-?-?-?-?-?-?- nst today is gustavo ctive. glucose levels normal. erwin last week was 20. pt has a repeat scan today 12/02/21 -?-?-?-?-?-?-?-?-?-?-?-?- 36w 2d 205 lb (+4 lb) 132/75 -?-?-?-?-?-?-?-?-?-?-?-?- -?-?-?-?-?-?-?-?-?-?-?-?- NST FHR Rate Baby A Baseline: 140 Variability:: Moderate Accelerations:: 15 x 15 Decelerations:: None NST Reactive:: Yes FHR Category:: Category I ROS Constitutional Constitutional: Reports systems reviewed and no addt'l complaints, except as documented ENT HEENT: Reports systems reviewed and no addt'l complaints, except as documented Cardiovascular Cardiovascular: Reports systems reviewed and no addt'l complaints, except as documented Respiratory/Chest Respiratory/Chest: Reports systems reviewed and no addt'l complaints, except as documented Gastrointestinal Gastrointestinal: Reports systems reviewed and no addt'l complaints, except as documented and nausea; Denies abdominal pain Genitourinary Genitourinary: Reports systems reviewed and no addt'l complaints, except as documented, contractions Details: present and frequency (regular ) and movement Details: present Musculoskeletal Musculoskeletal: Reports systems reviewed and no addt'l complaints, except as documented Integumentary Integumentary: Reports as per HPI Neurologic Neurologic: Reports systems reviewed and no addt'l complaints, except as documented Endocrine Endocrinology: Reports systems reviewed and no addt'l complaints, except as documented Vital Signs Vital Signs Vital Signs: 12/02/21 13:36 12/02/21 13:39 Temperature 97.9 F Pulse Rate 85 93 Blood Pressure 132/75 H BP Systolic 132 BP Diastolic 75 Pulse Ox 99 99 Weight Weight: 205 lb Body Mass Index (BMI) 33.0 Physical Exam Const alert, oriented x3 and healthy appearing Constitutional Narrative: uncomfortable with contractions HEENT normocephalic and moist oral mucous membranes Head and Scalp: atraumatic Neck full ROM, no lymphadenopathy, supple and thyroid normal General: trachea midline Thyroid: thyroid normal Lymph Lymphatic: no lymphadenopathy noted Chest inspection of chest normal Resp normal respiratory effort Cardio regular rate GI normal to inspection, nondistended, normoactive bowel sounds, soft to palpation and non-tender Inspection: gravid external exam normal Bimanual Exam - Vag & Uterus: uterus non-tender Manual OB Exam: estimated gestational size appropriate, presentation cephalic, dilated, effaced and station Extremity normal to inspection General Extremity: Negative for edema Skin no rashes or lesions noted Neuro deep tendon reflexes 2+ bilaterally Motor Exam: strength 5/5 throughout and clonus absent Psych mental status grossly normal Labs Labs Labs: Blood Type AB POSITIVE Antibody Screen NEGATIVE Hct 34.6 % (37-47) L Hgb 11.1 g/dL (12.0-15.0) L Pap Smear Negative Obstetrics US Syphilis Total Ab Non-reactive Rubella IgG Antibody Reactive (Nonreactive) Hep Bs Antigen Non-Reactive (Nonreactive) Neisseria gonorrhoeae DNA (MARLEY) Negative (Negative) HIV 1&2 Antibody Non-Reactive (Nonreactive) C.trachomatis DNA (PCR) Negative (Negative) Glucose 1 Hr 50 gm 141 mg/dL (70-140) H Group B Strep DNA Negative (Negative) Rhogam given: No Miscellaneous Test Assessment & Plan (1) premature rupture of membranes (PPROM) delivered, current hospitalization: (2) Macrosomia: COMMENT: growth US Q4 week (3) Gestational diabetes: QUALIFIERS: Gestational diabetes mellitus control: diet-controlled Trimester: third trimester Qualified Code(s): O24.410 - Gestational diabetes mellitus in , diet controlled COMMENT: due to macrosomia:growth q 4 wk, weekly NST (4) Abnormal glucose affecting : COMMENT: 3 hr GTT-Patient requested to possibly do 1 hr GTT again or check blood sugars. At this point she wants to repeat 1 hr GTT. (5) Supervision of high risk , antepartum: COMMENT: PRR LAURA 12/28/21 Gerardo Melendez. PC: Patric. Spouse: Velasquez (6) : QUALIFIERS: Weeks of gestation: 34 weeks Qualified Code(s): Z3A.34 - 34 weeks gestation of COMMENT: anatomy nl. declines carrier, ntd screen. low risk- male (7) History of section: COMMENT: CPD and failed vacuum. Plans RLTCS 12/15/21 @ noon (8) Anxiety: COMMENT: encouraged counseling, zoloft-stable/ stable 10/09 (9) HTN (hypertension): QUALIFIERS: Hypertension type: unspecified Qualified Code(s): I10 - Essential (primary) hypertension COMMENT: in past, no meds currently PLAN: proceed with RLTCS
[2021-12-02 16:55] LABS: Bedside Glucose 99 mg/dL (70-110)
[2021-12-02] MEDS: Acetaminophen 500 MG Tablet 1000 MG PO ×2 (17:22→23:39)
[2021-12-02 17:40] LABS: Bedside Glucose 64 mg/dL (70-110)
[2021-12-02] MEDS: Lactated Ringers 1,000 ML 999 ML IV (17:58)
[2021-12-02] MEDS: Dextrose 50%-Water 25 GM/50 ML DISP.SYRIN IV (18:00)
[2021-12-02] MEDS: Sodium Citrate/Citric Acid 30 ML UDC PO (18:19)
--- NOTE | 2021-12-02 18:20 | OP.PCM_ITS ---
Assessment & Plan (1) premature rupture of membranes (PPROM) delivered, current hospitalization: (2) Macrosomia: COMMENT: growth US Q4 week (3) Gestational diabetes: QUALIFIERS: Gestational diabetes mellitus control: diet-controlled Trimester: third trimester Qualified Code(s): O24.410 - Gestational diabetes mellitus in , diet controlled COMMENT: due to macrosomia:growth q 4 wk, weekly NST (4) Abnormal glucose affecting : COMMENT: 3 hr GTT-Patient requested to possibly do 1 hr GTT again or check blood sugars. At this point she wants to repeat 1 hr GTT. (5) Supervision of high risk , antepartum: COMMENT: PRR LAURA 12/28/21 Coby Melendez. PC: Patric. Spouse: Velasquez (6) : QUALIFIERS: Weeks of gestation: 34 weeks Qualified Code(s): Z3A.34 - 34 weeks gestation of COMMENT: anatomy nl. declines carrier, ntd screen. low risk- male (7) History of section: COMMENT: CPD and failed vacuum. Plans RLTCS 12/15/21 @ noon (8) HTN (hypertension): QUALIFIERS: Hypertension type: unspecified Qualified Code(s): I10 - Essential (primary) hypertension COMMENT: in past, no meds currently (9) Anxiety: COMMENT: encouraged counseling, zoloft-stable/ stable 10/09 (10) delivery delivered: COMMENT: 36 PPROM GDMA1 SM coby Penningtoner Maternal Data Information LAURA Calculator Estimated Delivery Date Method Current WG Current Estimate 12/28/21 LMP (Certain) 36w 2d Other Estimates 12/28/21 Ultrasound #1 36w 2d Final LAURA Source: LMP Details Operative Information Date of Procedure: 12/02/21 Pre-Operative Diagnosis: Previous Post-Operative Diagnosis: same Indications for : Repeat Elective Classification: SERAFIN (due to PPROM) Type of Anesthesia: Spinal Special Medications: none Antibiotic Given: Ancef 2 grams IV x1 Drain: Joiner to straight drain Estimated Blood Loss: 800 Fluids Replaced: crystalloid Findings Description of Procedure: Spinal anesthesia was placed without difficulty. Joiner catheter was placed. The patient was placed in the dorsal supine position with leftward tilt. Patient was prepped and draped in the normal sterile fashion. Pfannenstiel skin incision was made with the scalpel and carried through to the underlying layer of fascia with the scalpel. Fascia was nicked in the midline and the incision extended laterally. The rectus bellies were dissected off superiorly and inferiorly with out complication both sharply and bluntly. The peritoneum was entered digitally. The incision was stretched and a low transverse uterine incision was made with the scalpel. The infant's head was delivered atraumatically followed by the anterior and posterior shoulders without complication the rest of the delivered. The cord was clamped and cut and the was handed off to awaiting nurse. The placenta was delivered spontaneously immediately following and was noted to be intact and have a three- vessel cord. The uterus was exteriorized cleared of all clots and debris, and the incision was closed in a double layer closure using #1 Monocryl. The ovaries and fallopian tubes were noted to be within normal limits. The uterus was returned to the maternal abdomen and gutters were cleared of all clots and debris. The peritoneum was closed with 3-0 Monocryl in a running fashion. Gloves were changed prior to fascial closure. Fascia was closed with 0 PDS in a running fashion. Subcutaneous tissue was copiously irrigated and the skin was closed with 3-0 Monocryl in a subcuticular fashion. Mepilex dressing was applied without complication. Patient was taken to recovery in stable condition. It was discussed with the patient that based on the clinical information obtained during this encounter, combined with her history, at this time I would recommend cesareans for future deliveries if further pregnancies are desired. Amniotic Membrane Rupture Type: Artificial Amniotic Fluid Description: Clear Placenta Disposition: [facility] Cord Vessel Description: 3 Vessels Cord Entanglement: None Delayed Cord Clamping: Yes Complications Risks of Surgery Discussed w/Patient: Bleeding, Infection, Need for Future C- Sections and Injury to surrounding structure(s) including bowel and bladder Vaginal Delivery Complication Complications: None Admit VTE Documentation VTE Present on Admission: No VTE Mechan Device Prophylaxis: SCD's Procedures Urinary/Genital [id number]: [id number] Delivery [facility]
[2021-12-02 18:31] LABS: Bedside Glucose 122 mg/dL (70-110)
[2021-12-02] MEDS: Ketorolac 30 MG/ML Syringe IV (19:45)
[2021-12-02] MEDS: Oxytocin 30 units/NS 500 ml 30 UNITS/500 ML IV.SOLN 167 UNITS IV (19:45)
[2021-12-02 20:26] LABS: Bedside Glucose 134 mg/dL (70-110)
[2021-12-02] MEDS: Lactated Ringers 1,000 ML 100 ML IV (20:30)
[2021-12-03] VITALS (8 sets, daily range): BP systolic 106–147; BP diastolic 55–102; PULSE 65–92; RESP 16–18; TEMP 36.1–36.7; O2SAT 95–99
[2021-12-03] MEDS: Ketorolac 30 MG/ML Syringe IV ×3 (02:11→14:35)
[2021-12-03] MEDS: Acetaminophen 500 MG Tablet 1000 MG PO ×4 (05:25→23:39)
[2021-12-03 06:41] LABS: Bedside Glucose 81 mg/dL (70-110)
[2021-12-03 06:44] LABS: Hematocrit 30.8 % (37-47); Hemoglobin 9.8 g/dL (12.0-15.0); Mean Corp Hgb Conc 31.8 g/dL (32-36); Mean Corpuscular Hgb 26.6 pg (27.0-32.0); Mean Corpuscular Volume 83.5 fL (81-99); Platelet Count 228 K/mm3 (150-450); RBC Distribution Width CV 13.8 % (11.6-14.6); Red Blood Count 3.69 M/mm3 (4.2-5.4); White Blood Count 9.2 K/mm3 (4.4-11.0)
--- NOTE | 2021-12-03 08:00 | PN.OBGYN_ITS ---
Subjective Subjective Patient doing well without complaints. Tolerating PO. Ambulating and voiding without difficulty. Feeding well. Denies chest pain, shortness of breath, calf pain/swelling, fevers, chills, lightheadedness. Objective Data Objective Data Vital Signs: Vital Signs Temp Pulse Resp BP Pulse Ox 97.7 F L 76 18 118/55 L 97 12/03/21 03:25 12/03/21 05:20 12/03/21 05:20 12/03/21 03:25 12/03/21 05:20 Oxygen Delivery Method Room Air Weight: 205 lb Body Mass Index (BMI) 33.0 Intake & Output: Intake and Output for Last 24 Hours 12/01/21 12/02/21 12/03/21 23:59 23:59 23:59 Intake Total 2668.5 / 2668.5 691.67 / 691.67 Output Total 750 / 750 1800 / 1800 Balance 1918.5 / 1918.5 -1108.33 / -1108.33 Lab / Micro Data Result Diagrams: 12/03/21 06:36 Labs: Laboratory Results - last 24 hr 12/02/21 13:45: Vag Amniotic Fld Detect POSITIVE H 12/02/21 15:00: WBC 8.4, RBC 4.17 L, Hgb 11.1 L, Hct 34.6 L, MCV 83.0, MCH 26.6 L, MCHC 32.1, RDW Std Deviation 42.0, RDW Coeff of Maxim 14.0, Plt Count 258, MPV 11.5, Immature Gran % (Auto) 0.600, Neut % (Auto) 68.8, Lymph % (Auto) 23.0, [place] % (Auto) 7.3, Eos % (Auto) 0.2, Baso % (Auto) 0.1, Absolute Neuts (auto) 5.8, Absolute Lymphs (auto) 1.93, Nucleated RBC % 0 12/02/21 15:00: Blood Type AB POSITIVE, Antibody Screen NEGATIVE 12/02/21 15:24: POC Glucose 99 12/02/21 17:34: POC Glucose 64 L 12/02/21 18:16: POC Glucose 122 H 12/02/21 20:01: POC Glucose 134 H 12/03/21 06:31: POC Glucose 81 12/03/21 06:36: WBC 9.2, RBC 3.69 L, Hgb 9.8 L, Hct 30.8 L, MCV 83.5, MCH 26.6 L , MCHC 31.8 L, RDW Std Deviation 42.0, RDW Coeff of Maxim 13.8, Plt Count 228, MPV 11.0 Micro: Microbiology 12/02/21 15:05 Nasal Secretion SARS-CoV-2 Antigen (Rapid) - Final Physical Exam Const alert and oriented x3 HEENT normocephalic Eyes PERRL Neck full ROM Resp normal respiratory effort GI soft to palpation GI Narrative: FF below U. Dressing dry and intact Palpation: tender other (appropriately) Assessment & Plan (1) delivery delivered: COMMENT: 36 PPROM [id number] SM coby Melendez (2) Gestational diabetes: QUALIFIERS: Gestational diabetes mellitus control: diet-controlled Trimester: third trimester Qualified Code(s): O24.410 - Gestational diabetes mellitus in , diet controlled COMMENT: due to macrosomia:growth q 4 wk, weekly NST (3) HTN (hypertension): QUALIFIERS: Hypertension type: unspecified Qualified Code(s): I10 - Essential (primary) hypertension COMMENT: in past, no meds currently (4) Anxiety: COMMENT: encouraged counseling, zoloft-stable/ stable 10/09 PLAN: s/p LTCS PPD # 1 1. routine post care 2. breast feeding- support given 3. rh positive 4. rubella immune 5. mood, glucose and BP stable
[2021-12-03] MEDS: Senna/Docusate Sodium 1 Tablet PO (08:29)
[2021-12-03] MEDS: 0.9% Saline Lock 10 ML Syringe IV ×2 (08:29→14:36)
[2021-12-03] MEDS: Naproxen 500 MG Tablet PO (22:30)
[2021-12-03] MEDS: Sertraline 100 MG Tablet PO (23:39)
[2021-12-04 02:19] VITALS: BP 110/60; PULSE 69; RESP 18
[2021-12-04] MEDS: Naproxen 500 MG Tablet PO ×2 (05:39→14:19)
[2021-12-04] MEDS: Acetaminophen 500 MG Tablet 1000 MG PO ×2 (06:01→12:12)
[2021-12-04 08:00] VITALS: BP 111/51; PULSE 77; RESP 18; TEMP 36.6
--- NOTE | 2021-12-04 11:04 | PCM.DC ---
Discharge Instructions Diet Discharge Diet: No restrictions Activity Discharge Activity: May Not Drive (for 2 weeks or while taking narcotic pain medications.), May Shower and May Take a Tub Bath (in 7 days) May shower in (days): 0 May resume sexual activity in: 4-6 weeks Weight Bearing Status: Full weight bearing Lifting Restrictions: 20 pounds Dressing / Incision Call your doctor if your incision/area has: Continuous Slow Oozing, Sudden Increased Bleeding, Increased Pain/ Swelling, Increased Redness and Foul Smelling Discharge Call your doctor if you observe: Fever of 101 or Higher and Using more than 1 pad per hour (for 2 hours) Suture Line Care: Avoid Pulling/Pushing and Avoid Pinching/Bending Cleanse incision/area with: Soap & Water and Keep Dressing Clean & Dry Follow Up Care Please Follow Up With: Darcy Chavez MD When: Call [phone] to make an appointment for an incision check in 1-2 weeks. Test Results: Test results from this visit will be discussed in further detail at your follow-up appointment, if applicable. Discharge Plan Admission Admit Date/Time: 12/02/21 14:10 Attending Provider: Darcy Chavez Primary Care Provider: Care Physician,Mary Primary Discharge Orders/Prescriptions Prescriptions: New oxycodone-acetaminophen [Percocet] 5-325 mg tablet 1 tab PO Q6H PRN (Reason: pain) 7 Days Qty: 20 RF: 0 naproxen [naproxen] 500 MG tablet 500 mg PO BID PRN PRN (Reason: Pain) Qty: 30 RF: 1 Continued prenat.vits,claudia,[id number] Tablet 1 tab PO DAILY RF: 0 sertraline 100 mg tablet 100 mg PO DAILY Qty: 30 RF: 12 (DME) blood sugar diagnostic Strip See Rx Instructions .ROUTE .MEDSUPPLY Qty: 100 RF: 3 Referrals / Follow Up: Care Physician,No Primary [Primary Care Provider] - Disposition Disposition (needs filled in before D/C Order can be placed): Home, Self Care
--- NOTE | 2021-12-04 11:04 | PCM.PN.OB ---
Subjective Subjective Patient doing well without complaints. Tolerating PO. Ambulating and voiding without difficulty. feeding well. Denies chest pain, shortness of breath, calf pain/swelling, fevers, chills, lightheadedness. Objective Data Objective Data Vital Signs: Vital Signs Temp Pulse Resp BP Pulse Ox 98 F 77 18 111/51 L 97 12/04/21 08:00 12/04/21 08:00 12/04/21 08:00 12/04/21 08:00 12/03/21 18:16 Oxygen Delivery Method Room Air Weight: 205 lb Body Mass Index (BMI) 33.0 Intake & Output: Intake and Output for Last 24 Hours 12/02/21 12/03/21 12/04/21 23:59 23:59 23:59 Intake Total 2668.5 / 2668.5 691.67 / 691.67 Output Total 750 / 750 2200 / 2200 Balance 1918.5 / 1918.5 -1508.33 / -1508.33 Lab / Micro Data Result Diagrams: 12/03/21 06:36 Micro: Microbiology 12/02/21 15:05 Nasal Secretion SARS-CoV-2 Antigen (Rapid) - Final ROS Constitutional Constitutional: Reports systems reviewed and no addt'l complaints, except as documented Cardiovascular Cardiovascular: Reports systems reviewed and no addt'l complaints, except as documented Respiratory/Chest Respiratory/Chest: Reports systems reviewed and no addt'l complaints, except as documented Gastrointestinal Gastrointestinal: Reports systems reviewed and no addt'l complaints, except as documented Physical Exam Const alert, oriented x3 and no apparent distress HEENT Head and Scalp: atraumatic Resp normal respiratory effort GI soft to palpation and non-tender Inspection: incision intact, healing well and drainage (none) Bimanual Exam - Vag & Uterus: uterus non-tender Uterus Palpation: uterus fundus firm (below Umbilicus) Assessment & Plan (1) delivery delivered: COMMENT: 36 PPROM [id number] SM boy Al (2) Gestational diabetes: QUALIFIERS: Gestational diabetes mellitus control: diet-controlled Trimester: third trimester Qualified Code(s): O24.410 - Gestational diabetes mellitus in , diet controlled COMMENT: due to macrosomia:growth q 4 wk, weekly NST (3) HTN (hypertension): QUALIFIERS: Hypertension type: unspecified Qualified Code(s): I10 - Essential (primary) hypertension COMMENT: in past, no meds currently (4) Anxiety: COMMENT: encouraged counseling, zoloft-stable/ stable 10/09 PLAN: s/p LTCS PPD # 2 1. routine post care 2. breast feeding- support given 3. rh positive 4. rubella immune
[2021-12-04] MEDS: Senna/Docusate Sodium 1 Tablet PO (12:12)
[2021-12-04 14:31] VITALS: BP 126/72; PULSE 75; RESP 18; TEMP 36.6
== END 2021-12-04 16:15 | disposition home or self-care (01) | DRG 787 ==
LOC: WPOUT 14:14 → WP 14:14
PROVIDERS: Admitting Provider Obstetrics & Gynecology; Referring Provider Obstetrics & Gynecology; Visit Provider Obstetrics & Gynecology
DX: O42.913 Preterm premature rupture of membranes, unspecified as to length of time between rupture and onset of labor, third trimester (principal); O10.02 Pre-existing essential hypertension complicating childbirth; F41.9 Anxiety disorder, unspecified; O24.420 Gestational diabetes mellitus in childbirth, diet controlled; Z37.0 Single live birth; Z3A.36 36 weeks gestation of pregnancy; O34.219 Maternal care for unspecified type scar from previous cesarean delivery; O99.344 Other mental disorders complicating childbirth; Z86.16 Personal history of COVID-19
CPT/HCPCS: 59025; 59050; 76815; 82962; 84112; 85025; 85027; 86850; 86900; 86901; 87426; 99218; 99251; J7120; A4216; G0378; G0463; J2405; J3490

== ENCOUNTER → 2023-02-23 | Outpatient (CLI) | payer BC, SELFPAY ==
[2023-02-27 15:08] LABS: HPV APTIMA, High Risk Negative (Negative)
== END | disposition home or self-care (01) ==
LOC: LAB 10:23
PROVIDERS: Referring Provider Obstetrics & Gynecology; Visit Provider Obstetrics & Gynecology
DX: Z12.4 Encounter for screening for malignant neoplasm of cervix (principal)
CPT/HCPCS: 87624; 88175; G0145